=== PATIENT | female | born 1940 | race Caucasian/White ===

== ENCOUNTER 2017-08-12 08:23 | Day surgery (SDC) | payer MEDICARE ==
[~2017-08-12 08:23] MED LIST: CHONDR SU A NA/HYALUR INTRAOC KIT (SURGICARE) ONE; EPINEPHRINE INJ/PF 1 MG/1 ML AMPULE ONE; KETOROLAC TROMETHAMINE 0.45% 4 DROP/0.4 ML DROPERETTE OS PRN; LIDOCAINE 1% INJ-PF (10 MG/ML) 30 ML SDV ONE
[2017-08-12] MEDS: TETRACAINE HCL 0.5% OPH SOLN 2 ML OS PRN ×3 (09:00→09:36)
[2017-08-12] MEDS: CYCLOPENTOLATE 0.2%/PHENYLEPHRINE 1% OPH SOLN 2 ML OS PRN ×3 (09:01→09:23)
[2017-08-12] MEDS: TROPICAMIDE 1% OPH SOLN 3 ML OS PRN ×3 (09:01→09:23)
[2017-08-12] MEDS: BESIFLOXACIN HCL 0.6% OPH SUSP 5 ML BOTTLE OS PRN ×3 (09:02→09:58)
[2017-08-12] MEDS ORDERED: MIDAZOLAM 2 MG/2 ML INJ ONE (09:24)
--- NOTE | 2017-08-12 20:14 | [facility] OPERATIVE REPORT E ---
[facility] Operative Report NAME: VIKKI MCKINLEY AGE: 77Y DATE OF SURGERY: 08/12/2017 ROOM: PREOPERATIVE DIAGNOSIS: CATARACT, LEFT EYE. POSTOPERATIVE DIAGNOSIS: CATARACT, LEFT EYE. OPERATION: Cataract extraction with intraocular lens implant of the left eye. SURGEON: PHOENIX HOLLIS M.D. ANESTHESIA: Topical. PROCEDURE: After obtaining appropriate consent, the patient's left eye was prepped and draped in sterile fashion as well as the surgeon in a sterile manner and cataract surgery was started. First a paracentesis blade was used to make a small side-port incision. Viscoelastic was used to inflate the anterior chamber. Next a 2.4 mm incision was made with the paracentesis blade. A continuous capsulorrhexis incision was made using a cystotome and Utrata forceps. Following this hydrodissection was carried out to make the lens fully loose and mobile and it was rotated 90 degrees. Following this, a igmxpr-kjo-riffvvp technique was used to phacoemulsify the lens with a CDE of 6.54. The remaining cortex was removed with irrigation/aspiration. Provisc was instilled into the capsular bag to inflate the bag. A SN60WF, 20.0 diopter lens was placed. The remaining viscoelastic material was removed with irrigation/aspiration. Following this, a 10-0 nylon suture was used to close the incision and it was found to be watertight. Vigamox was instilled in the eye and a protective shield was placed over the eye. The patient returned to the postoperative recovery in stable condition. DICTATING PHYSICIAN: PHOENIX HOLLIS M.D. [id number] PHY#: [id number] ID: [id number] JOB#: [id number] ACCT: [id number] cc:PHOENIX HOLLIS M.D. >
--- NOTE | 2017-08-12 20:14 | [facility] DISCHARGE SUMMARY E ---
[facility] Discharge Summary NAME: VIKKI MCKINLEY AGE: 77Y ADMITTED: 08/12/2017 DISCHARGED: 08/12/2017 HOSPITAL COURSE: This is a 77-year-old female who underwent cataract extraction of her left eye. DIAGNOSIS: CATARACT, LEFT EYE. She underwent surgery because she was having difficulty seeing small print. DISCHARGE INSTRUCTIONS: She should be on a regular diet. No bending at her waist, no heavy lifting. She should use Besivance, Ilevro, and Durezol at 3 p.m. and 8 p.m. and sleep with a rigid shield. I will see her for her 1 day postoperative tomorrow. DICTATING PHYSICIAN: PHOENIX HOLLIS M.D. [id number] PHY#: [id number] ID: [id number] JOB#: [id number] ACCT: [id number] cc:PHOENIX HOLLIS M.D. >
== END 2017-08-12 10:45 | disposition home or self-care (01) ==
LOC: SC 08:23
PROVIDERS: ATTEND Internal Medicine
PROC: 08RK3JZ Replacement of Left Lens with Synthetic Substitute, Percutaneous Approach (ICD-10-PCS; principal; 2017-08-12 10:00)
DX: H25.13 Age-related nuclear cataract, bilateral (principal); H40.1231 Low-tension glaucoma, bilateral, mild stage; H04.123 Dry eye syndrome of bilateral lacrimal glands; H52.4 Presbyopia; I10 Essential (primary) hypertension; E78.00 Pure hypercholesterolemia, unspecified; E03.9 Hypothyroidism, unspecified; K21.9 Gastro-esophageal reflux disease without esophagitis; M19.049 Primary osteoarthritis, unspecified hand; Z87.891 Personal history of nicotine dependence; Z88.2 Allergy status to sulfonamides; Z79.899 Other long term (current) drug therapy
CPT/HCPCS: 66984; V2632; J2250; J3490 ×2; A9270; J0171; 142

== ENCOUNTER 2017-09-02 07:53 | Day surgery (SDC) | payer MEDICARE ==
[~2017-09-02 07:53] MED LIST changes: -CHONDR SU A NA/HYALUR INTRAOC KIT (SURGICARE) ONE; -EPINEPHRINE INJ/PF 1 MG/1 ML AMPULE ONE; +KETOROLAC TROMETHAMINE 0.45% 4 DROP/0.4 ML DROPERETTE OD PRN; -KETOROLAC TROMETHAMINE 0.45% 4 DROP/0.4 ML DROPERETTE OS PRN; -LIDOCAINE 1% INJ-PF (10 MG/ML) 30 ML SDV ONE
[2017-09-02] MEDS: TETRACAINE HCL 0.5% OPH SOLN 2 ML OD PRN ×3 (08:45→09:15)
[2017-09-02] MEDS: CYCLOPENTOLATE 0.2%/PHENYLEPHRINE 1% OPH SOLN 2 ML OD PRN ×3 (08:45→09:12)
[2017-09-02] MEDS: TROPICAMIDE 1% OPH SOLN 3 ML OD PRN ×3 (08:45→09:12)
[2017-09-02] MEDS: BESIFLOXACIN HCL 0.6% OPH SUSP 5 ML BOTTLE OD PRN ×4 (08:45→09:36)
[2017-09-02] MEDS ORDERED: MIDAZOLAM 2 MG/2 ML INJ ONE ×2 (08:57→09:28)
[2017-09-02] MEDS ORDERED: FENTANYL CITRATE INJ/PF 100 MCG/2 ML AMPUL ONE (08:57)
[2017-09-02] MEDS: CHONDR SU A NA/HYALUR INTRAOC KIT (SURGICARE) ONE ×2 (09:26)
[2017-09-02] MEDS: LIDOCAINE 1% INJ-PF (10 MG/ML) 30 ML SDV ONE ×2 (09:26)
[2017-09-02] MEDS: EPINEPHRINE INJ/PF 1 MG/1 ML AMPULE ONE ×2 (09:26)
[2017-09-02] MEDS ORDERED: PROMETHAZINE HCL INJ 25 MG/1 ML VIAL ONE (10:33)
--- NOTE | 2017-09-02 22:14 | DISCHARGE SUMMARY E ---
Discharge Summary NAME: VIKKI MCKINLEY : 1940 AGE: 77Y ADMITTED: 09/02/2017 DISCHARGED: 09/02/2017 HOSPITAL COURSE: This is a [id number]-old female who underwent cataract extraction of the right eye. DIAGNOSIS: Cataract, right eye. She underwent surgery because she was having difficulty seeing road signs and small print. DISCHARGE INSTRUCTIONS: She is to be on a regular diet. No bending at her waist, no heavy lifting. She is to use her Besivance, Ilevro, and Durezol at 3:00 p.m. and 8:00 p.m., and sleep with a rigid shield. I will see her for a 1 day postoperative tomorrow. DICTATING PHYSICIAN: PHOENIX HOLLIS M.D. [id number] PHY#: [id number] ID: [id number] JOB#: [id number] ACCT: [id number] cc:PHOENIX HOLLIS M.D. >
--- NOTE | 2017-09-02 22:14 | [facility] OPERATIVE REPORT E ---
[facility] Operative Report NAME: VIKKI MCKINLEY AGE: 77Y DATE OF SURGERY: 09/02/2017 ROOM: PREOPERATIVE DIAGNOSIS: CATARACT, RIGHT EYE. POSTOPERATIVE DIAGNOSIS: CATARACT, RIGHT EYE. OPERATION: Cataract extraction with intraocular lens implant of the right eye. SURGEON: PHOENIX HOLLIS M.D. ANESTHESIA: Topical. PROCEDURE: After obtaining appropriate consent, the patient's right eye was prepped and draped in sterile fashion as well as the surgeon in a sterile manner and cataract surgery was started. First a paracentesis blade was used to make a small side-port incision. Viscoelastic was used to inflate the anterior chamber. Next a 2.4 mm incision was made with the paracentesis blade. A continuous capsulorrhexis incision was made using a cystotome and Utrata forceps. Following this hydrodissection was carried out to make the lens fully loose and mobile and it was rotated 90 degrees. Following this, a wxkspg-pnb-wmsenyv technique was used to phacoemulsify the lens with a CDE of 8.36. The remaining cortex was removed with irrigation/aspiration. Provisc was instilled into the capsular bag to inflate the bag. A SN60WF, 20.0 diopter lens was placed. The remaining viscoelastic material was removed with irrigation/aspiration. Following this, a 10-0 nylon suture was used to close the incision and it was found to be watertight. Vigamox was instilled in the eye and a protective shield was placed over the eye. The patient returned to the postoperative recovery in stable condition. DICTATING PHYSICIAN: PHOENIX HOLLIS M.D. [id number] PHY#: [id number] ID: [id number] JOB#: [id number] ACCT: [id number] cc:PHOENIX HOLLIS M.D. >
== END 2017-09-02 11:49 | disposition home or self-care (01) ==
LOC: SC 07:53
PROVIDERS: ATTEND Internal Medicine
PROC: 08RJ3JZ Replacement of Right Lens with Synthetic Substitute, Percutaneous Approach (ICD-10-PCS; principal; 2017-09-02 09:30)
DX: H25.11 Age-related nuclear cataract, right eye (principal); Z96.1 Presence of intraocular lens; H40.1231 Low-tension glaucoma, bilateral, mild stage; I10 Essential (primary) hypertension; K21.9 Gastro-esophageal reflux disease without esophagitis; E07.9 Disorder of thyroid, unspecified; Z79.899 Other long term (current) drug therapy; Z88.2 Allergy status to sulfonamides
CPT/HCPCS: 66984; V2632; J2250; J3490 ×2; A9270; J0171; J3010; J2550; 142

== ENCOUNTER 2018-03-01 11:15 | Observation (INO) | payer MEDICARE ==
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
[2018-03-01 12:38] LABS: APPEARANCE,URINE SLIGHTLY-CLOUDY; BILIRUBIN,URINE NEGATIVE (NEGATIVE); COLOR,URINE YELLOW; GLUCOSE, URINE NEGATIVE (NEGATIVE); KETONES,URINE NEGATIVE (NEGATIVE); LEUKOCYTE ESTERASE,URINE SMALL (NEGATIVE); NITRITE,URINE NEGATIVE (NEGATIVE); PROTEIN,URINE 30 mg/dL (NEGATIVE)
[2018-03-01 12:38] LABS: ABSOLUTE EOSINOPHILS # (AUTO) 0.1 10^3/uL (0.0-0.6); ABSOLUTE LYMPHOCYTES (AUTO) 1.1 10^3/uL (0.5-4.7); ABSOLUTE MONOCYTES (AUTO) 0.9 10^3/uL (0.1-1.4); ABSOLUTE NEUT (AUTO) 7.4 10^3/uL (1.7-8.2); BASOPHILS % (AUTO) 0.5 % (0-2); EOSINOPHILS % (AUTO) 1.1 % (0-6); HEMATOCRIT 41.8 % (36.0-47.0); HEMOGLOBIN 14.4 g/dL (12.0-15.5); LYMPHOCYTES % (AUTO) 11.4 % (13-45); MEAN CORPUSCULAR HEMOGLOBIN 29.9 pg (27.0-33.4); MEAN CORPUSCULAR HGB CONC 34.5 g/dL (32.0-36.0); MEAN CORPUSCULAR VOLUME 87 fl (80-97); MONOCYTES % (AUTO) 9.1 % (3-13); PLATELET COUNT 179 10^3/uL (150-450); RED BLOOD COUNT 4.82 10^6/uL (3.72-5.28); RED CELL DISTRIBUTION WIDTH 14.2 % (11.5-14.0); SEGMENTED NEUTROPHILS % (AUTO) 77.9 % (42-78); TOTAL CELLS COUNTED % (AUTO) 100 %; WHITE BLOOD COUNT 9.5 10^3/uL (4.0-10.5)
--- NOTE | 2018-03-01 12:55 | RADIOLOGY REPORT (SQ) ---
EXAM DESCRIPTION: CHEST 2 VIEWS COMPLETED DATE/TIME: 03/01/2018 12:47 pm REASON FOR STUDY: sob COMPARISON: None. EXAM PARAMETERS: NUMBER OF VIEWS: two views TECHNIQUE: Digital Frontal and Lateral radiographic views of the chest acquired. RADIATION DOSE: NA LIMITATIONS: none FINDINGS: LUNGS AND PLEURA: No opacities, masses or pneumothorax. No pleural effusion. MEDIASTINUM AND HILAR STRUCTURES: No masses or contour abnormalities. HEART AND VASCULAR STRUCTURES: Heart normal size. No evidence for failure. BONES: Degenerative changes and mild increased kyphosis thoracic spine. HARDWARE: None in the chest. OTHER: No other significant finding. IMPRESSION: 1. NO ACUTE RADIOGRAPHIC FINDING IN THE CHEST. TECHNICAL DOCUMENTATION: JOB ID: [id number] [employer]- All Rights Reserved Reading location - IP/workstation name: [email or web address]
[2018-03-01 12:58] LABS: ALANINE AMINOTRANSFERASE 30 U/L (9-52); ALBUMIN 4.7 g/dL (3.5-5.0); ALKALINE PHOSPHATASE 43 U/L (38-126); ANION GAP 10 (5-19); ASPARTATE AMINO TRANSFERASE 25 U/L (14-36); BILIRUBIN,DIRECT 0.5 mg/dL (0.0-0.4); BILIRUBIN,TOTAL 1.2 mg/dL (0.2-1.3); BLOOD UREA NITROGEN 21 mg/dL (7-20); CALCIUM 9.9 mg/dL (8.4-10.2); CARBON DIOXIDE 27 mmol/L (22-30); CHLORIDE 104 mmol/L (98-107); CREATINE KINASE 377 U/L (30-135); GLUCOSE 110 mg/dL (75-110); POTASSIUM 4.2 mmol/L (3.6-5.0); SODIUM 140.5 mmol/L (137-145); TOTAL PROTEIN 7.6 g/dL (6.3-8.2)
[2018-03-01] MEDS ORDERED: ASPIRIN 81 MG TABLET, CHEWABLE PO ONE (13:08)
[2018-03-01 13:10] LABS: CREATINE KINASE MB 3.17 ng/mL (<4.55); NT PRO BNP 372 pg/mL (<450)
--- NOTE | 2018-03-01 13:13 | ER Document Report ---
ED General - General Chief Complaint: Shortness Of Breath Stated Complaint: SHORTNESS OF BREATH Time Seen by Provider: 03/01/18 11:17 TRAVEL OUTSIDE OF THE [place] IN LAST 30 DAYS: No - HPI Notes: Patient is a 77-year-old female that presents to the emergency department for chief complaint of chest pain and palpitations. Patient started having a heaviness in her chest this morning at 8 AM. It is substernal and nonradiating. There are no aggravating or relieving factors. The heaviness is currently starting to improve but has not completely resolved. She reports associated heart "fluttering" and shortness of breath that began at the same time. She does endorse a cough that has been nonproductive. She denies any fevers or chills. Patient denies history of cardiac issues in the past including VT and dysrhythmia. She has never had a stress test. She did not take aspirin today. She denies being on anticoagulation. Past Medical History: Retention, hyperlipidemia, hypothyroidism Past Surgical History: Denies Social History: Denies drugs alcohol and tobacco Family History: Reviewed and noncontributory for presenting illness Allergies: Reviewed, see documented allergy list. REVIEW OF SYSTEMS: CONSTITUTIONAL : No fever No chills No diaphoresis No recent illness EENT: No vision changes No congestion No sore throat CARDIOVASCULAR: chest pain No palpitations RESPIRATORY: shortness of breath No cough No difficulty breathing GASTROINTESTINAL: No abdominal pain No nausea No vomiting No diarrhea GENITOURINARY: No dysuria No hematuria No difficulty urinating MUSCULOSKELETAL: No back pain No leg pain No arm pain SKIN: No rashes No lesions LYMPHATIC: No swollen, enlarged glands. NEUROLOGICAL: No lightheadedness No headache No weakness No paresthesias PSYCHIATRIC: No anxiety No depression PHYSICAL EXAMINATION: Vital signs reviewed, nursing noted reviewed. GENERAL: Well-appearing, well-nourished and in no acute distress. HEAD: Atraumatic, normocephalic. EYES: Eyes appear normal, extraocular movements intact, sclera anicteric, conjunctiva are normal. ENT: nares patent, oropharynx clear without exudates. Moist mucous membranes. NECK: Normal range of motion, supple without lymphadenopathy LUNGS: Breath sounds clear to auscultation bilaterally and equal. No wheezes rales or rhonchi. HEART: Irregular rhythm, regular rate, no murmur ABDOMEN: Soft, nontender, normoactive bowel sounds. No rebound, guarding, or rigidity. No masses appreciated. EXTREMITIES: Nontender, good range of motion, no pitting or edema. NEUROLOGICAL: No focal neurological deficits. Moves all extremities spontaneously Motor and sensory grossly intact on exam. PSYCH: Normal mood, normal affect. SKIN: Warm, Dry, normal turgor, no rashes or lesions noted on exposed skin - Related Data Allergies/Adverse Reactions: Sulfa (Sulfonamide Antibiotics) Allergy (Verified 03/01/18 11:15) Past Medical History - Social History Smoking Status: Never Smoker Family History: Reviewed & Not Pertinent Patient has suicidal ideation: No Patient has homicidal ideation: No - Past Medical History Cardiac Medical History: Reports: Hx Coronary Artery Disease, Hx Hypertension - ON MEDS Denies: Hx Heart Attack Pulmonary Medical History: Denies: Hx Asthma, Hx Bronchitis, Hx COPD, Hx Pneumonia Neurological Medical History: Denies: Hx Cerebrovascular Accident, Hx Seizures Renal/ Medical History: Denies: Hx Peritoneal Dialysis GI Medical History: Denies: Hx Hepatitis, Hx Hiatal Hernia, Hx Ulcer Musculoskeletal Medical History: 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, 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 Infectious Medical History: Denies: Hx Hepatitis Past Surgical History: Reports: Hx Hysterectomy. Denies: Hx Mastectomy, Hx Open Heart Surgery, Hx Pacemaker - Immunizations Hx Diphtheria, Pertussis, Tetanus Vaccination: Yes Hx Pneumococcal Vaccination: 04/07/13 Review of Systems - Review of Systems Notes: Dictated Physical Exam - Vital signs Vitals: Temp Pulse BP Pulse Ox 97.6 F 94 148/78 H 96 03/01/18 11:18 03/01/18 11:18 03/01/18 11:18 03/01/18 11:18 - Notes Notes: Dictated Course - Re-evaluation Re-evalutation: 03/01/18 13:11 Vitals reviewed and stable. Patient in no acute distress. EKG shows no onset atrial flutter. She is rate controlled. Patient given aspirin for chest pain. Chest x-ray shows no pneumothorax, pneumonia, or other acute findings. She has no electrolyte derangements or renal insufficiency. UA shows small leuks and 10 WBCs but it is a contaminated sample. She has no symptoms of urinary tract infection. Urine culture will be sent for confirmation and antibiotics held until culture returns. Patient's troponin is negative. She will be admitted to the hospital for further telemetry monitoring and cardiac evaluation. Case discussed with admitting physician Dr. Christine who has requested CT angiogram to rule out pulmonary embolism. I ordered the CT angio of the chest and he will follow the results. Patient is stable at time of admission and in agreement with the plan. Laboratory 03/01/18 03/01/18 03/01/18 11:25 12:19 12:19 WBC 9.5 RBC 4.82 Hgb 14.4 Hct 41.8 MCV 87 MCH 29.9 MCHC 34.5 RDW 14.2 H Plt Count 179 Seg Neutrophils % 77.9 Lymphocytes % 11.4 L Monocytes % 9.1 Eosinophils % 1.1 Basophils % 0.5 Absolute Neutrophils 7.4 Absolute Lymphocytes 1.1 Absolute Monocytes 0.9 Absolute Eosinophils 0.1 Absolute Basophils 0.0 Sodium 140.5 Potassium 4.2 Chloride 104 Carbon Dioxide 27 Anion Gap 10 BUN 21 H Creatinine 0.66 Est GFR ( Amer) > 60 Est GFR (Non-Af Amer) > 60 Glucose 110 Calcium 9.9 Total Bilirubin 1.2 Direct Bilirubin 0.5 H Neonat Total Bilirubin Not Reportable Neonat Direct Bilirubin Not Reportable Neonat Indirect Bili Not Reportable AST 25 ALT 30 Alkaline Phosphatase 43 Creatine Kinase 377 H Total Protein 7.6 Albumin 4.7 Urine Color YELLOW Urine Appearance SLIGHTLY-CLOUDY Urine pH 5.0 Ur Specific [place] 1.020 Urine Protein 30 H Urine Glucose (UA) NEGATIVE Urine Ketones NEGATIVE Urine Blood MODERATE H Urine Nitrite NEGATIVE Urine Bilirubin NEGATIVE Urine Urobilinogen 2.0 H Ur Leukocyte Esterase SMALL H Urine WBC (Auto) 10 Urine RBC (Auto) 4 U Hyaline Cast (Auto) 1 Urine Bacteria (Auto) TRACE Squamous Epi Cells Auto 4 U Non-Squamous Epis Auto 2 Urine Mucus (Auto) OCC Urine Ascorbic Acid NEGATIVE Chest X-Ray 03/01/18 11:52 IMPRESSION: 1. NO ACUTE RADIOGRAPHIC FINDING IN THE CHEST. 03/01/18 13:56 - Vital Signs Vital signs: Temp Pulse Resp BP Pulse Ox 97.6 F 94 15 159/62 H 98 03/01/18 11:18 03/01/18 11:18 03/01/18 12:37 03/01/18 12:37 03/01/18 12:37 - Laboratory Result Diagrams: 03/01/18 12:19 09/25/18 12:19 Laboratory results interpreted by me: 03/01/18 03/01/18 03/01/18 11:25 12:19 12:19 RDW 14.2 H Lymphocytes % 11.4 L BUN 21 H Direct Bilirubin 0.5 H Creatine Kinase 377 H Urine Protein 30 H Urine Blood MODERATE H Urine Urobilinogen 2.0 H Ur Leukocyte Esterase SMALL H Discharge - Discharge Clinical Impression: Shortness of breath Atrial flutter Qualifiers: Atrial flutter type: unspecified Qualified Code(s): I48.92 - Unspecified atrial flutter Chest pain Qualifiers: Chest pain type: unspecified Qualified Code(s): R07.9 - Chest pain, unspecified Condition: Stable Disposition: ADMITTED OBSERVATION Admitting Provider: Hospitalist Unit Admitted: Telemetry Referrals: ASHA MONTIEL MD [Primary Care Provider] - Follow up as needed
[2018-03-01 13:14] LABS: TROPONIN I < 0.012 ng/mL
--- NOTE | 2018-03-01 14:52 | RADIOLOGY REPORT (SQ) ---
EXAM DESCRIPTION: CTA CHEST COMPLETED DATE/TIME: 03/01/2018 2:38 pm REASON FOR STUDY: palpitations, PE COMPARISON: None. TECHNIQUE: CT scan of the chest performed using helical scanning technique with dynamic intravenous contrast injection. Images reviewed with lung, soft tissue and bone windows. Reconstructed coronal and sagittal MPR images reviewed. Additional 3 dimensional post-processing performed to develop Maximal Intensity Projection images (UT P). All images stored on PACS. All CT scanners at this facility use dose modulation, iterative reconstruction, and/or weight based d osing when appropriate to reduce radiation dose to as low as reasonably achievable (ALARA). [facility]: Dose Right [facility]: CareDose [facility]: Dose Right [facility]: Teradose 4D [facility]: Joust CONTRAST TYPE AND DOSE: contrast/concentration: Isovue 350.00 mg/ml; Total Contrast Delivered: 74.0 ml; Total Saline Delivered: 86.9 ml Contrast bolus optimized for the pulmonary arteries. Not diagnostic for the aorta. RENAL FUNCTION: Creatinine: 0.7 RADIATION DOSE: CT Rad equipment meets quality standard of care and radiation dose reduction techniq ues were employed. CTDIvol: 16.5 - 21.5 mGy. DLP: 795 mGy-cm. . LIMITATIONS: None. FINDINGS: LUNGS AND PLEURA: Chronic scarring in lung bases. AORTA AND GREAT VESSELS: No aneurysm. Contrast bolus not optimized for the aorta. HEART: No pericardial effusion. Atherosclerotic coronary calcification. . PULMONARY ARTERIES: No emboli visualized in the main pulmonary arteries or the segmental branches. HILAR AND MEDIASTINAL STRUCTURES: No adenopathy. HARDWARE: None in the chest. UPPER ABDOMEN: The liver, spleen, adrenals demonstrate no abnormality. No abnormality of the upper p ole the kidneys. Hiatal hernia. THYROID AND OTHER SOFT TISSUES: No abnormality. BONES: Dorsal spondylosis. IMPRESSION: CHRONIC SCARRING IN LUNG BASES. OTHERWISE, NO SIGNIFICANT ABNORMALITY SEEN. COMMENT: Quality ID # [id number]: Final reports with documentation of one or more dose reduction techniques (e.g., Automated exposure control, adjustment of the mA and/or kV according to patient size, use of iterative reconstruction technique) TECHNICAL DOCUMENTATION: JOB ID: [id number] SC-[id number] 2010 [employer]- All Rights Reserved Reading location - IP/workstation name: [email or web address]
--- NOTE | 2018-03-01 16:56 | EKG REPORT ---
SEVERITY:- ABNORMAL ECG - ATRIAL FLUTTER/FIBRILLATION, A-RATE 227 INFERIOR INFARCT, OLD CONSIDER POSTERIOR WALL INVOLVEMENT ST DEPRESSION, CONSIDER ISCHEMIA, ANT-LAT LDS : Confirmed by: Ashanti Zambrano MD 01-Mar-2018 16:56:03
[2018-03-01] MEDS ORDERED: DILTIAZEM HCL/D5W 125 MG/125 ML RTUINJ IV PRN (17:26)
[2018-03-01] MEDS: ENOXAPARIN SODIUM INJ 80 MG/0.8 ML DISP.SYRIN SUBCUT SCH (17:55)
[2018-03-01 18:05] LABS: INTERNATIONAL RATION (INR) 1.02; PROTHROMBIN TIME 13.9 SEC (11.4-15.4)
[2018-03-01] MEDS ORDERED: ACETAMINOPHEN 325 MG TABLET PO PRN (20:33)
--- NOTE | 2018-03-01 20:33 | PDOC H&P ---
History of Present Illness Admission Date/PCP: 03/01/18 14:15 ASHA MONTIEL MD Patient complains of: Shortness of breath History of Present Illness: VIKKI MCKINLEY is a 77 year old female with a past medical history of hypertension, hypothyroidism and hyperlipidemia who came in with shortness of breath and chest discomfort. Patient says that she was apparently fine until late this afternoon afternoon when she developed sudden SOB and midsternal discomfort. She said it does not pain and it feels like a heavy sensation on the midsternal area. She did complain of associated shortness of breath. She denies of palpitations or dizziness. No nausea or diaphoresis. In the ER, patient was noted to be in atrial flutter in the 90s. Her blood pressures have been normal. Past Medical History Cardiac Medical History: Reports: Coronary Artery Disease, Hypertension - ON MEDS Denies: Myocardial Infarction Pulmonary Medical History: Denies: Asthma, Bronchitis, Chronic Obstructive Pulmonary Disease (COPD), Pneumonia Neurological Medical History: Denies: Seizures GI Medical History: Denies: Hepatitis, Hiatal Hernia Musculoskeltal Medical History: Reports: Arthritis - B/L KNEES, 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 Hematology: Reports: Anemia - A CHILD Denies: Sickle Cell Disease Past Surgical History Past Surgical History: Reports: Hysterectomy Denies: Amputation, Mastectomy, Pacemaker Social History Smoking Status: Never Smoker Family History Family History: Reviewed & Not Pertinent Parental Family History Reviewed: No - no premature CAD Children Family History Reviewed: No Sibling(s) Family History Reviewed.: No Medication/Allergy Home Medications: Estradiol [Divigel] 0.5 mg TOP DAILY 04/16/14 [place]-3 Acid Ethyl Esters 2 gm PO BID 04/16/14 Calcium Polycarbophil [Fibercon 625 mg Tablet] 1,250 mg PO DAILY 04/17/14 Levothyroxine Sodium 88 mcg PO Q6AM 07/08/17 Omeprazole 20 mg PO DAILY 07/08/17 Latanoprost [Xalatan] 1 drop OU QHS 08/12/17 Rosuvastatin Calcium [Crestor 20 mg Tablet] 40 mg PO QHS 03/01/18 Apixaban [Eliquis 2.5 mg Tablet] 2.5 mg PO Q12 #60 tablet 03/02/18 Aspirin [Aspirin 81 mg Chewable Tablet] 81 mg PO DAILY #30 tab.chew 03/02/18 Lisinopril [Prinivil 10 mg Tablet] 10 mg PO DAILY #30 tablet 03/02/18 Metoprolol Tartrate [Lopressor 50 mg Tablet] 50 mg PO Q12 #60 tablet 03/02/18 Allergies/Adverse Reactions: Sulfa (Sulfonamide Antibiotics) Allergy (Verified 03/01/18 11:15) Physical Exam Vital Signs: Temp Pulse Resp BP Pulse Ox 97.6 F 94 29 H 145/66 H 92 03/01/18 11:18 03/01/18 11:18 03/01/18 15:05 03/01/18 15:05 03/01/18 15:05 Results Impressions: Chest X-Ray 03/01/18 11:52 IMPRESSION: 1. NO ACUTE RADIOGRAPHIC FINDING IN THE CHEST. Chest/Abdomen CTA 03/01/18 13:55 IMPRESSION: CHRONIC SCARRING IN LUNG BASES. OTHERWISE, NO SIGNIFICANT ABNORMALITY SEEN. Assessment & Plan - Diagnosis (1) Atrial flutter Qualifiers: Atrial flutter type: unspecified Qualified Code(s): I48.92 - Unspecified atrial flutter Is this a current diagnosis for this admission?: Yes Plan: This is new onset atrial flutter. CHADVASC score is 4. Discussed in length about plans of care including anticoagulation including its risks and benefits. Patient is amenable to anticoagulation. Also discussed with cardiology. Patient will be started on therapeutic Lovenox. She will also be started on IV Cardizem at 5 mg/h. (2) Chest pain Qualifiers: Chest pain type: unspecified Qualified Code(s): R07.9 - Chest pain, unspecified Is this a current diagnosis for this admission?: Yes Plan: EKG shows atrial flutter. Initial troponin is negative. We will continue to cycle troponins and EKGs. - Time Time Spent: 50 to 70 Minutes
[2018-03-01] MEDS ORDERED: ATORVASTATIN CALCIUM 80 MG TABLET PO SCH (22:00)
[2018-03-01] MEDS ORDERED: ROSUVASTATIN CALCIUM 40 MG PO SCH (22:00)
[2018-03-01] MEDS ORDERED: HEPARIN SOD (PORCINE) 5,000 UNIT/ML 1 ML SYRINGE SUBCUT SCH (22:00)
[2018-03-02] MEDS ORDERED: LEVOTHYROXINE SODIUM 0.088 MG TABLET PO SCH ×2 (06:00)
[2018-03-02] MEDS: ENOXAPARIN SODIUM INJ 80 MG/0.8 ML DISP.SYRIN SUBCUT SCH (06:41)
--- NOTE | 2018-03-02 07:54 | EKG REPORT ---
SEVERITY:- ABNORMAL ECG - ATRIAL FLUTTER, A-RATE 230 NONSPECIFIC T ABNORMALITIES, LATERAL LEADS BORDERLINE PROLONGED QT INTERVAL : Confirmed by: Ashatni Zambrano MD 02-Mar-2018 07:54:18
--- NOTE | 2018-03-02 07:55 | EKG REPORT ---
SEVERITY:- ABNORMAL ECG - A-FLUTTER W/ PREDOM 3:1 AV BLOCK, A-RATE 230 NONSPECIFIC INTRAVENTRICULAR CONDUCTION DELAY : Confirmed by: Ashanti Zambrano MD 02-Mar-2018 07:54:28
[2018-03-02] MEDS ORDERED: HYDROCHLOROTHIAZIDE 12.5 MG TABLET PO SCH (10:00)
[2018-03-02] MEDS ORDERED: (PENDING PHARMACY ID) (Lisinopril/Hydrochlorothiazide [Lisinopril-Hctz 20-12.5 Mg Tab] 1 T PO SCH (10:00)
[2018-03-02] MEDS ORDERED: METOPROLOL TARTRATE 50 MG TABLET PO SCH (10:00)
[2018-03-02] MEDS ORDERED: APIXABAN 5 MG TABLET PO SCH (10:00)
[2018-03-02] MEDS ORDERED: ASPIRIN 81 MG TABLET, CHEWABLE PO SCH (10:00)
[2018-03-02] MEDS ORDERED: LISINOPRIL 10 MG TABLET PO SCH (10:00)
--- NOTE | 2018-03-02 15:16 | PDOC DISCHARGE SUMMARY ---
General - Admit/Disc Date/PCP Admission Date/Primary Care Provider: 03/01/18 14:15 ASHA MONTIEL MD Discharge Date: 03/02/18 - Discharge Diagnosis (1) Atrial flutter Is this a current diagnosis for this admission?: Yes (2) Chest pain Is this a current diagnosis for this admission?: Yes - Additional Information Resuscitation Status: Full Code Prescriptions: Apixaban [Eliquis 2.5 mg Tablet] 2.5 mg PO Q12 #60 tablet Aspirin [Aspirin 81 mg Chewable Tablet] 81 mg PO DAILY #30 tab.chew Lisinopril [Prinivil 10 mg Tablet] 10 mg PO DAILY #30 tablet Metoprolol Tartrate [Lopressor 50 mg Tablet] 50 mg PO Q12 #60 tablet Home Medications: Estradiol [Divigel] 0.5 mg TOP DAILY 04/16/14 [place]-3 Acid Ethyl Esters 2 gm PO BID 04/16/14 Calcium Polycarbophil [Fibercon 625 mg Tablet] 1,250 mg PO DAILY 04/17/14 Levothyroxine Sodium 88 mcg PO Q6AM 07/08/17 Omeprazole 20 mg PO DAILY 07/08/17 Latanoprost [Xalatan] 1 drop OU QHS 08/12/17 Rosuvastatin Calcium [Crestor 20 mg Tablet] 40 mg PO QHS 03/01/18 Apixaban [Eliquis 2.5 mg Tablet] 2.5 mg PO Q12 #60 tablet 03/02/18 Aspirin [Aspirin 81 mg Chewable Tablet] 81 mg PO DAILY #30 tab.chew 03/02/18 Lisinopril [Prinivil 10 mg Tablet] 10 mg PO DAILY #30 tablet 03/02/18 Metoprolol Tartrate [Lopressor 50 mg Tablet] 50 mg PO Q12 #60 tablet 03/02/18 History of Present Illness History of Present Illness: VIKKI MCKINLEY is a 77 year old female with a past medical history of hypertension, hypothyroidism and hyperlipidemia who came in with shortness of breath and chest discomfort. Patient says that she was apparently fine until late this yesterday afternoon when she developed sudden SOB and midsternal discomfort. She said it does not pain and it feels like a heavy sensation on the midsternal area. She did complain of associated shortness of breath. She denies of palpitations or dizziness. No nausea or diaphoresis. In the ER, patient was noted to be in atrial flutter in the 90s. Her blood pressures have been normal. Hospital Course Hospital Course: Patient was admitted for new onset atrial flutter with HR in the 90s. Cardiology was consulted upon admission. Patient was started on cardizem drip at 5 mg/hr and was also started on therapeutic Lovenox after discussing risks and benefits of anticoagulation. Patient has a CHADVASC score of 4. She was amenable to chronic anticoagulation. Patient was continued on cardizem overnight. On the next day, she transiently went to sinus rhythm but immediately back to atrial flutter. Her heart was optimally controlled in the 70 -80s. She was switched to oral lopressor and also switched to Eliquis as recommended by cardiology. She was also given a referral by slat pickler for a slat pickler at [facility] for evaluation for possible ablation. Physical Exam Vital Signs: Temp Pulse Resp BP Pulse Ox 97.9 F 66 17 129/59 H 96 03/02/18 12:51 03/02/18 12:51 03/02/18 12:51 03/02/18 12:51 03/02/18 12:51 Intake & Output 03/01/18 03/02/18 03/03/18 06:59 06:59 06:59 Intake Total 3210 Balance 3210 Weight 170 lb 6.677 oz General appearance: PRESENT: no acute distress, well-developed, well-nourished Head exam: PRESENT: atraumatic, normocephalic Eye exam: PRESENT: conjunctiva pink, EOMI, PERRLA. ABSENT: scleral icterus Ear exam: PRESENT: normal external ear exam Mouth exam: PRESENT: moist, tongue midline Neck exam: ABSENT: carotid bruit, JVD, lymphadenopathy, thyromegaly Respiratory exam: PRESENT: clear to auscultation lin. ABSENT: rales, rhonchi, wheezes Cardiovascular exam: PRESENT: RRR. ABSENT: diastolic murmur, rubs, systolic murmur Pulses: PRESENT: normal dorsalis pedis pul GI/Abdominal exam: PRESENT: normal bowel sounds, soft. ABSENT: distended, guarding, mass, organolmegaly, rebound, tenderness Rectal exam: PRESENT: deferred Extremities exam: PRESENT: full ROM. ABSENT: calf tenderness, clubbing, pedal edema Neurological exam: PRESENT: alert, awake, oriented to person, oriented to place , oriented to time, oriented to situation, CN II-XII grossly intact. ABSENT: motor sensory deficit Psychiatric exam: PRESENT: appropriate affect, normal mood. ABSENT: homicidal ideation, suicidal ideation Results Laboratory Results: 03/01/18 03/02/18 18:03 00:41 Troponin I < 0.012 < 0.012 Impressions: Chest X-Ray 03/01/18 11:52 IMPRESSION: 1. NO ACUTE RADIOGRAPHIC FINDING IN THE CHEST. Chest/Abdomen CTA 03/01/18 13:55 IMPRESSION: CHRONIC SCARRING IN LUNG BASES. OTHERWISE, NO SIGNIFICANT ABNORMALITY SEEN. Qualifiers - * PATIENT BEING DISCHARGED WITH ANY OF THE FOLLOWING DIAGNOSIS: No
[2018-03-02 15:35] VITALS: BP 152/69
--- NOTE | 2018-03-02 19:34 | EKG REPORT ---
SEVERITY:- ABNORMAL ECG - ATRIAL FLUTTER, A-RATE 230 PROBABLE LEFT VENTRICULAR HYPERTROPHY : Confirmed by: Ashanti Zambrano MD 02-Mar-2018 19:34:05
--- NOTE | 2018-03-02 19:34 | EKG REPORT ---
SEVERITY:- ABNORMAL ECG - A-FLUTTER W/ PREDOM 3:1 AV BLOCK, A-RATE 230 : Confirmed by: Ashanti Zambrano MD 02-Mar-2018 19:33:53
[2018-03-02] MEDS ORDERED: APIXABAN 2.5 MG TABLET PO SCH (22:00)
[2018-03-03] MEDS ORDERED: LISINOPRIL 10 MG TABLET PO SCH (10:00)
== END 2018-03-02 16:24 | disposition home or self-care (01) ==
LOC: ER 11:15 → EH 14:15 → 4S 20:30 → 3W 03-02 10:22
PROVIDERS: ADMIT Internal Medicine; ATTEND Internal Medicine
DX: I48.92 Unspecified atrial flutter (principal); R07.89 Other chest pain; E03.9 Hypothyroidism, unspecified; I10 Essential (primary) hypertension; E78.5 Hyperlipidemia, unspecified; R06.02 Shortness of breath; I25.10 Atherosclerotic heart disease of native coronary artery without angina pectoris; R05 Cough; Z79.82 Long term (current) use of aspirin; Z79.899 Other long term (current) drug therapy; Z79.02 Long term (current) use of antithrombotics/antiplatelets
CPT/HCPCS: 93005 ×3; 99285; 96372; 36415 ×2; 87086; 82553; 82550; 84443; 85025; 85610; 80053; 81001; 84484 ×2; 83880; 71046; 71275; 93010 ×2; G0378 ×3; A9270 ×7; J1650 ×2; J3490

== ENCOUNTER 2018-05-23 09:46 | Inpatient (IN) | payer MEDICARE ==
[2018-05-23] MEDS ORDERED: METOCLOPRAMIDE HCL INJ/PF 10 MG/2 ML SDV IV ONE (10:10)
[2018-05-23] MEDS ORDERED: NORMAL SALINE 1000 ML 1,000 ML IV ONE (10:10)
--- NOTE | 2018-05-23 10:17 | ER Document Report ---
ED General - General Stated Complaint: HEADACHE Time Seen by Provider: 05/23/18 09:54 Mode of Arrival: Medic Information source: Patient, Relative Notes: 78-year-old female presents emergency department with complaints of headache, slurred speech, hand numbness and tingling. Patient states that yesterday her symptoms started. She states that she began having a headache located in the left caodaism that radiated across the forehead to the right caodaism. Patient states that she does have a history of migraine headaches and that this is similar although she hasn't had a headache in a long time. Gradual onset. She states that the headache is worse with light. She is taken Tylenol and states that it does help with the pain. Denies trauma or injury. Patient states that yesterday she noticed some numbness and tingling in her right hand. This resolved and today she has been having numbness and tingling in her left hand. Patient states that her son contacted her this morning at 8 AM and she noticed that she was slurring her speech. Patient's son says that when he called at 8 AM he noticed that her tone was different but denies any slurred speech. He states that when he called back at 815 he noticed the slurred speech. He states that the patient's slurred speech has completely resolved. Patient denies any current numbness or tingling or weakness, vision changes. Patient has a history of atrial fibrillation and is on eliquis. Denies history of CVA. TRAVEL OUTSIDE OF THE [place] IN LAST 30 DAYS: No - HPI Onset: Yesterday Quality of pain: Throbbing Severity: Moderate Associated symptoms: Productive cough, Earache, Nausea, Rhinnorhea, Sore throat Exacerbated by: Other - light Relieved by: Other - tylenol Similar symptoms previously: Yes Recently seen / treated by doctor: No - Related Data Allergies/Adverse Reactions: Sulfa (Sulfonamide Antibiotics) Allergy (Verified 03/01/18 11:15) Past Medical History - General Information source: Patient, Relative - Social History Smoking Status: Never Smoker Family History: Reviewed & Not Pertinent - Past Medical History Cardiac Medical History: Reports: Hx Coronary Artery Disease, Hx Hypertension - ON MEDS Denies: Hx Congestive Heart Failure, Hx Heart Attack Pulmonary Medical History: Denies: Hx Asthma, Hx Bronchitis, Hx COPD, Hx Pneumonia, Hx Tuberculosis Neurological Medical History: Denies: Hx Cerebrovascular Accident, Hx Seizures Renal/ Medical History: Denies: Hx End Stage Renal Disease, Hx Kidney Stones, Hx Peritoneal Dialysis GI Medical History: Denies: Hx Cirrhosis, Hx Gastroesophageal Reflux Disease, Hx Hepatitis, Hx Hiatal Hernia, Hx Ulcer Musculoskeletal Medical History: 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, 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, Denies Hx Multiple Sclerosis Psychiatric Medical History: Denies: Hx Bipolar Disorder, Hx Depression, Hx Schizophrenia Infectious Medical History: Denies: Hx Hepatitis Past Surgical History: Reports: Hx Hysterectomy. Denies: Hx Mastectomy, Hx Open Heart Surgery, Hx Pacemaker - Immunizations Hx Diphtheria, Pertussis, Tetanus Vaccination: Yes Hx Pneumococcal Vaccination: 04/07/13 Review of Systems - Review of Systems Constitutional: No symptoms reported EENT: Ear pain, Nose discharge, Throat pain Cardiovascular: No symptoms reported Respiratory: Cough Gastrointestinal: No symptoms reported Genitourinary: No symptoms reported Female Genitourinary: No symptoms reported Musculoskeletal: No symptoms reported Skin: No symptoms reported Hematologic/Lymphatic: No symptoms reported Neurological/Psychological: Speech impairment, Numbness, Tingling -: Yes All other systems reviewed and negative Physical Exam - Vital signs Vitals: Resp 16 05/23/18 09:46 - Notes Notes: PHYSICAL EXAMINATION: GENERAL: Well-appearing, well-nourished and in no acute distress. HEAD: Atraumatic, normocephalic. EYES: Pupils equal round and reactive to light, extraocular movements intact, conjunctiva are normal. ENT: Nares patent, oropharynx clear without exudates. Moist mucous membranes. NECK: Normal range of motion, supple without lymphadenopathy LUNGS: Breath sounds clear to auscultation bilaterally and equal. No wheezes rales or rhonchi. HEART: Regular rate and rhythm without murmurs ABDOMEN: Soft, nontender, nondistended abdomen. No guarding, no rebound. No masses appreciated. Female : deferred Musculoskeletal: Normal range of motion, no pitting or edema. No cyanosis. NEUROLOGICAL: Cranial nerves grossly intact. Normal speech, Normal sensory, motor exams. Finger to nose normal. PSYCH: Normal mood, normal affect. SKIN: Warm, Dry, normal turgor, no rashes or lesions noted. Course - Re-evaluation Re-evalutation: 05/23/18 10:20 Patient stroke score of 0. Says her slurred speech and hand numbness have resolved. Patient is not a TPA candidate as she has a stroke score of 0, is 78 years of age, and is on eliquis. 05/23/18 11:25 EKG: Ventricular rate 67, VA interval 204, QRS duration 94, QTc 486, normal sinus rhythm. No ST segment elevation. 05/23/18 12:49 CT brain shows infarct in R MCA area. No midline shift or bleed. Patient's family say that when she got up to go to the bathroom while in the ER and she had R foot numbness/tingling. I re-evaluted the patient. Continues to have a stroke score of 0. R foot numbness has resolved. BP has been increasing since being in the ED. Initially 176/95. Morphine ordered for headache. Spoke with Dr. Adam about hypertensive medication. Recommends holding anti-hypertensives at this time. He will come to the ED to evaluate the patient. Patient currently stable. 05/23/18 12:52 - Vital Signs Vital signs: Temp Pulse Resp BP Pulse Ox 25 H 166/151 H 98 05/23/18 12:00 05/23/18 11:01 05/23/18 12:00 - Laboratory Result Diagrams: 05/23/18 10:04 05/23/18 11:22 Laboratory results interpreted by me: 05/23/18 05/23/18 05/23/18 10:04 10:20 11:22 RDW 14.8 H Seg Neutrophils % 79.0 H Lymphocytes % 12.0 L Potassium 3.2 L Creatinine 0.44 L Glucose 115 H Total Bilirubin 1.6 H Urine Protein >=500 H Urine Ketones TRACE H Urine Blood SMALL H Discharge - Discharge Clinical Impression: CVA (cerebral vascular accident) Condition: Stable Disposition: ADMITTED OBSERVATION Admitting Provider: Hospitalist Unit Admitted: IMCU Referrals: ASHA MONTIEL MD [Primary Care Provider] - Follow up as needed
[2018-05-23] MEDS ORDERED: HYDRALAZINE HCL INJ/PF 20 MG/1 ML SDV IV ONE (10:24)
[2018-05-23 10:42] LABS: ABSOLUTE MONOCYTES (AUTO) 0.7 10^3/uL (0.1-1.4); ABSOLUTE NEUT (AUTO) 6.6 10^3/uL (1.7-8.2); BASOPHILS % (AUTO) 0.2 % (0-2); EOSINOPHILS % (AUTO) 0.5 % (0-6); HEMATOCRIT 42.9 % (36.0-47.0); HEMOGLOBIN 14.7 g/dL (12.0-15.5); MEAN CORPUSCULAR HEMOGLOBIN 28.7 pg (27.0-33.4); MEAN CORPUSCULAR HGB CONC 34.4 g/dL (32.0-36.0); MEAN CORPUSCULAR VOLUME 84 fl (80-97); MONOCYTES % (AUTO) 8.3 % (3-13); PLATELET COUNT 159 10^3/uL (150-450); RED BLOOD COUNT 5.13 10^6/uL (3.72-5.28); RED CELL DISTRIBUTION WIDTH 14.8 % (11.5-14.0); TOTAL CELLS COUNTED % (AUTO) 100 %; WHITE BLOOD COUNT 8.4 10^3/uL (4.0-10.5)
[2018-05-23 10:44] LABS: INTERNATIONAL RATION (INR) 1.09; PARTIAL THROMBOPLASTIN TIME 33.9 SEC (23.5-35.8); PROTHROMBIN TIME 14.7 SEC (11.4-15.4)
[2018-05-23 10:50] LABS: APPEARANCE,URINE CLEAR; BILIRUBIN,URINE NEGATIVE (NEGATIVE); COLOR,URINE STRAW; GLUCOSE, URINE NEGATIVE (NEGATIVE); KETONES,URINE TRACE mg/dL (NEGATIVE); LEUKOCYTE ESTERASE,URINE NEGATIVE (NEGATIVE); NITRITE,URINE NEGATIVE (NEGATIVE); PROTEIN,URINE >=500 mg/dL (NEGATIVE); URINE SPECIFIC GRAVITY 1.009; UROBILINOGEN,URINE NEGATIVE mg/dL (<2.0)
--- NOTE | 2018-05-23 10:59 | RADIOLOGY REPORT (SQ) ---
EXAM DESCRIPTION: CT HEAD WITHOUT COMPLETED DATE/TIME: 05/23/2018 10:34 am REASON FOR STUDY: headache, slurred speech COMPARISON: None. TECHNIQUE: Axial images acquired through the brain without intravenous contrast. Images reviewed wi th bone, brain and subdural windows. Additional sagittal and coronal reconstructions were generated. Images stored on PACS. All CT scanners at this facility use dose modulation, iterative reconstruction, and/or weight based d osing when appropriate to reduce radiation dose to as low as reasonably achievable (ALARA). [facility]: Dose Right [facility]: CareDose [facility]: Dose Right [facility]: Teradose 4D [facility]: Third Chicken RADIATION DOSE: CT Rad equipment meets quality standard of care and radiation dose reduction techniq ues were employed. CTDIvol: 53.2 mGy. DLP: 1044 mGy-cm. mGy. LIMITATIONS: Motion artifact throughout the study. Artifact from caregiver's hand over the frontal region FINDINGS: Motion artifact throughout the study. Artifact versus low attenuation in the right MCA distribution, with sulcal effacement and decreased a ttenuation. No CT evidence of acute intracranial hemorrhage, or midline shift Bone windows are unremarkable IMPRESSION: Question right MCA distribution infarct with low-attenuation present. No acute hemorrha ge. EVIDENCE OF ACUTE STROKE: YES. COMMENT: Pertinent findings on the imaging study reported as a CRITICAL RESULT to Alfreda ALTMAN at10:43 on 05/23/2018. Category of Critical Result: Acute right MCA distribution infarct Quality ID # [id number]: Final reports with documentation of one or more dose reduction techniques (e.g., Au tomated exposure control, adjustment of the mA and/or kV according to patient size, use of iterative reconstruction technique) TECHNICAL DOCUMENTATION: JOB ID: [id number] [employer]- All Rights Reserved Reading location - IP/workstation name: [email or web address]
--- NOTE | 2018-05-23 11:07 | RADIOLOGY REPORT (SQ) ---
EXAM DESCRIPTION: CHEST SINGLE VIEW COMPLETED DATE/TIME: 05/23/2018 10:36 am REASON FOR STUDY: headache, slurred speech COMPARISON: February 2018 EXAM PARAMETERS: NUMBER OF VIEWS: One view. TECHNIQUE: Single frontal radiographic view of the chest acquired. RADIATION DOSE: NA LIMITATIONS: None. FINDINGS: LUNGS AND PLEURA: No opacities, masses or pneumothorax. No pleural effusion. MEDIASTINUM AND HILAR STRUCTURES: No masses. Contour normal. HEART AND VASCULAR STRUCTURES: Heart normal in size. Normal vasculature. BONES: No acute findings. HARDWARE: None in the chest. OTHER: No other significant finding. IMPRESSION: NO ACUTE RADIOGRAPHIC FINDING IN THE CHEST. TECHNICAL DOCUMENTATION: JOB ID: [id number] [facility]- All Rights Reserved Reading location - IP/workstation name: [email or web address]
[2018-05-23] MEDS ORDERED: CLONIDINE HCL 0.1 MG TABLET PO ONE ×2 (11:27→12:43)
[2018-05-23] MEDS ORDERED: MORPHINE SULFATE 10 MG/ML INJ IV ONE (11:32)
[2018-05-23 11:55] LABS: ALANINE AMINOTRANSFERASE 26 U/L (9-52); ALKALINE PHOSPHATASE 69 U/L (38-126); ANION GAP 13 (5-19); ASPARTATE AMINO TRANSFERASE 18 U/L (14-36); BILIRUBIN,DIRECT 0.3 mg/dL (0.0-0.4); BILIRUBIN,TOTAL 1.6 mg/dL (0.2-1.3); BLOOD UREA NITROGEN 12 mg/dL (7-20); CALCIUM 9.9 mg/dL (8.4-10.2); CARBON DIOXIDE 23 mmol/L (22-30); CHLORIDE 104 mmol/L (98-107); CREATINE KINASE 76 U/L (30-135); GLUCOSE 115 mg/dL (75-110); POTASSIUM 3.2 mmol/L (3.6-5.0); SODIUM 139.5 mmol/L (137-145); TOTAL PROTEIN 8.1 g/dL (6.3-8.2)
[2018-05-23 12:06] LABS: CREATINE KINASE MB 0.87 ng/mL (<4.55)
[2018-05-23 12:07] LABS: TROPONIN I < 0.012 ng/mL
--- NOTE | 2018-05-23 13:20 | EKG REPORT ---
SEVERITY:- DEFECTIVE ECG - RIGHT AND LEFT ARM LEADS REVERSED, PLEASE REPEAT ECG : Confirmed by: Nader Perez MD 23-May-2018 13:20:04
[2018-05-23] MEDS ORDERED: LABETALOL HCL INJ 20 MG/4 ML DISP.SYRIN IV PRN (13:32)
[2018-05-23] MEDS ORDERED: HYDROCODONE/ACETAMINOPHEN 5-325 MG TABLET PO PRN (13:46)
[2018-05-23] MEDS: ONDANSETRON HCL INJ/PF 4 MG/2 ML SDV IV PRN ×2 (15:07→19:08)
--- NOTE | 2018-05-23 16:37 | PDOC H&P ---
History of Present Illness Admission Date/PCP: 05/23/18 12:56 ASHA MONTIEL MD History of Present Illness: VIKKI MCKINLEY is a 78 year old female who began to have left hand numbness for about 2 hours yesterday. She said she also had a frontal headache all day yesterday. She says she still has a headache now. She said this morning she began to experience a little bit of right hand numbness and so she called her son. Her son spoke with her on the phone and said he was coming to get her. While he was on the way over he called her back and said at that time he believe her speech had changed and she was slurring a little bit. EMS did not note any slurring of speech according to her report that I was told. At this time she is asymptomatic except for her headache and a very high blood pressure. CT of the head noted what looks like an acute right MCA territory infarct. Past Medical History Cardiac Medical History: Reports: Coronary Artery Disease, Hypertension - ON MEDS Denies: Congestive Heart Failure, Myocardial Infarction Pulmonary Medical History: Denies: Asthma, Bronchitis, Chronic Obstructive Pulmonary Disease (COPD), Pneumonia, Tuberculosis Neurological Medical History: Denies: Seizures Renal/ Medical History: Denies: End Stage Renal Disease GI Medical History: Denies: Cirrhosis, Gastroesophageal Reflux Disease, Hepatitis, Hiatal Hernia Musculoskeltal Medical History: Reports: Arthritis - B/L KNEES, 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 Psychiatric Medical History: Denies: Bipolar Disorder, Depression Hematology: Reports: Anemia - A CHILD Denies: Sickle Cell Disease, Bleeding Tendencies Past Surgical History Past Surgical History: Reports: Hysterectomy Denies: Amputation, Mastectomy, Pacemaker Social History Smoking Status: Never Smoker Family History Family History: Reviewed & Not Pertinent Parental Family History Reviewed: Yes - Father of a stroke in his 70s Children Family History Reviewed: Yes - Noncontributory Sibling(s) Family History Reviewed.: Yes - Brother had a stroke in his 60s Medication/Allergy Home Medications: [place]-3 Acid Ethyl Esters 2 gm PO BID 04/16/14 Levothyroxine Sodium 88 mcg PO Q6AM 07/08/17 Omeprazole 20 mg PO DAILY 07/08/17 Latanoprost [Xalatan] 1 drop OU QHS 08/12/17 Apixaban [Eliquis 2.5 mg Tablet] 2.5 mg PO Q12 #60 tablet 03/02/18 Lisinopril [Prinivil 10 mg Tablet] 10 mg PO DAILY #30 tablet 03/02/18 Metoprolol Tartrate [Lopressor 50 mg Tablet] 50 mg PO Q12 #60 tablet 03/02/18 Rosuvastatin Calcium [Crestor] 40 mg PO QHS 05/23/18 Allergies/Adverse Reactions: Sulfa (Sulfonamide Antibiotics) Allergy (Verified 03/01/18 11:15) Review of Systems All systems: reviewed and no additional remarkable complaints except as stated - 10 point review of systems was conducted with the patient and was negative except as noted above Physical Exam Vital Signs: Temp Pulse Resp BP Pulse Ox 58 L 13 176/68 H 95 05/23/18 10:00 05/23/18 14:02 05/23/18 14:02 05/23/18 14:02 General appearance: PRESENT: cooperative, disheveled, mild distress, obese Head exam: PRESENT: atraumatic, normocephalic Eye exam: PRESENT: EOMI, PERRLA. ABSENT: conjunctival injection, nystagmus, scleral icterus Ear exam: PRESENT: normal external ear exam Mouth exam: PRESENT: moist, neck supple Throat exam: ABSENT: post pharyngeal erythema Neck exam: PRESENT: full ROM. ABSENT: carotid bruit, JVD, lymphadenopathy, meningismus, tenderness, thyromegaly Respiratory exam: PRESENT: clear to auscultation lin, symmetrical, unlabored. ABSENT: accessory muscle use, chest wall tenderness, rales, rhonchi, tachypnea, wheezes Cardiovascular exam: PRESENT: RRR, +S1, +S2. ABSENT: diastolic murmur, systolic murmur Vascular exam: PRESENT: normal capillary refill GI/Abdominal exam: PRESENT: normal bowel sounds, soft. ABSENT: distended, guarding, rebound, tenderness Extremities exam: ABSENT: clubbing, pedal edema Musculoskeletal exam: PRESENT: normal inspection. ABSENT: deformity Neurological exam: PRESENT: awake, oriented to person, oriented to place, oriented to time, oriented to situation, CN II-XII grossly intact. ABSENT: motor sensory deficit Psychiatric exam: PRESENT: flat affect Skin exam: PRESENT: dry, warm Results Impressions: Chest X-Ray 05/23/18 10:09 IMPRESSION: NO ACUTE RADIOGRAPHIC FINDING IN THE CHEST. Head CT 05/23/18 10:09 IMPRESSION: Question right MCA distribution infarct with low-attenuation present. No acute hemorrhage. EVIDENCE OF ACUTE STROKE: YES. Assessment & Plan - Diagnosis (1) Acute ischemic right MCA stroke Is this a current diagnosis for this admission?: Yes Plan: Permissive hypertension for the first 24 hours. As needed labetalol with parameters, for greater than systolic of over 220 or diastolic over 120. Aspirin and statin. We will check her lipid panel and hemoglobin A1c. We will try to get an MRI of the brain and MRA of the head and neck. No evidence on CT that this is embolic, and even though she has a history of atrial fibrillation, she is in a sinus rhythm right now, she has been on anticoagulant for the last few months. Because she is in a sinus rhythm and because of her blood pressure , the anticoagulant will be held for the time being. Have her evaluated by PT, OT, and speech therapy. - Time Time Spent: 50 to 70 Minutes - Inpatient Certification Medical Necessity: Need Close Monitoring Due to Risk of Patient Decompensation, Need For Continuous Telemetry Monitoring, Need for Neurological Checks
[2018-05-23] MEDS: ATORVASTATIN CALCIUM 80 MG TABLET PO SCH (23:35)
[2018-05-23] MEDS: LATANOPROST 0.005% OPH SOLN 2.5 ML OU SCH (23:36)
[2018-05-24] MEDS ORDERED: SCOPOLAMINE HYDROBROMIDE 1.5 MG PATCH.TD72 TD ONE (00:20)
[2018-05-24 05:20] LABS: HEMATOCRIT 41.3 % (36.0-47.0); HEMOGLOBIN 14.3 g/dL (12.0-15.5); MEAN CORPUSCULAR HEMOGLOBIN 28.6 pg (27.0-33.4); MEAN CORPUSCULAR HGB CONC 34.6 g/dL (32.0-36.0); MEAN CORPUSCULAR VOLUME 83 fl (80-97); PLATELET COUNT 159 10^3/uL (150-450); RED BLOOD COUNT 4.99 10^6/uL (3.72-5.28); RED CELL DISTRIBUTION WIDTH 14.6 % (11.5-14.0); WHITE BLOOD COUNT 10.7 10^3/uL (4.0-10.5)
[2018-05-24 05:46] LABS: ANION GAP 11 (5-19); BLOOD UREA NITROGEN 15 mg/dL (7-20); CALCIUM 9.6 mg/dL (8.4-10.2); CARBON DIOXIDE 23 mmol/L (22-30); CHLORIDE 104 mmol/L (98-107); CHOLESTEROL 145.54 mg/dL (0-200); GLUCOSE 111 mg/dL (75-110); POTASSIUM 3.3 mmol/L (3.6-5.0); SODIUM 138.4 mmol/L (137-145); TRIGLYCERIDES 119 mg/dL (<150)
[2018-05-24 05:57] LABS: DIRECT LDL 84 mg/dL (<100)
[2018-05-24] MEDS: LANSOPRAZOLE 15 MG TAB.RAP.DR PO SCH (05:59)
[2018-05-24] MEDS: LEVOTHYROXINE SODIUM 0.088 MG TABLET PO SCH (05:59)
[2018-05-24] MEDS ORDERED: LORAZEPAM INJ 2 MG/1 ML VIAL IV PRN (08:59)
[2018-05-24] MEDS ORDERED: POTASSIUM CHLORIDE 10 MEQ CAPSULE.ER PO ONE (09:00)
[2018-05-24] MEDS ORDERED: ESTRADIOL 0.5 MG TOP SCH (10:00)
[2018-05-24] MEDS: ASPIRIN 325 MG TABLET, ENT COATED PO SCH (10:44)
--- NOTE | 2018-05-24 10:55 | RADIOLOGY REPORT (SQ) ---
EXAM DESCRIPTION: MRI HEAD WITHOUT; MRA HEAD WITHOUT COMPLETED DATE/TIME: 05/24/2018 10:32 am REASON FOR STUDY: acute right MCA infarct on CT COMPARISON: CT brain 05/23/2018 TECHNIQUE: Multiplanar imaging includes non-contrasted T1, T2, FLAIR, and diffusion with ADC map seq uences. Images stored on PACS. 3D [id number] [place] MRA exam was performed. Source data and maximum intensity re- pro jected images/3D reconstructions were reviewed. Images saved to pac's. LIMITATIONS: None. FINDINGS: ANATOMY: No anomalies. Normal vascular flow voids. Pituitary fossa normal. CSF SPACES: Normal in size and contour. No hemorrhage. CEREBRUM: Sulci and gyri normal in size and contour. Minimal spotty age-appropriate increased bifron jerrod white matter signal on FLAIR imaging. No evidence of hemorrhage, mass, or extraaxial fluid colle ction. POSTERIOR FOSSA: No signal alteration. No hemorrhage. No edema, masses or mass effect. Internal jasbir tory canals, cerebello-pontine angles, mastoids normal. DIFFUSION IMAGING: Negative for acute or sub-acute infarction. ORBITS: No masses. Globes normal. PARANASAL SINUSES: No fluid levels. Mucosa normal. [place] MRA: No significant finding. No sulcal of [place] stenosis, vascular malformation, o r aneurysm. IMPRESSION: ESSENTIALLY NORMAL MRI OF THE BRAIN/ MRA EXAM [place] OF [place] WITHOUT INTRAVENOUS GADOL INIUM CONTRAST. EVIDENCE OF ACUTE STROKE: NO. TECHNICAL DOCUMENTATION: JOB ID: [id number] [employer]- All Rights Reserved Reading location - IP/workstation name: [facility]-RR
--- NOTE | 2018-05-24 10:55 | RADIOLOGY REPORT (SQ) ---
EXAM DESCRIPTION: MRI HEAD WITHOUT; MRA HEAD WITHOUT COMPLETED DATE/TIME: 05/24/2018 10:32 am REASON FOR STUDY: acute right MCA infarct on CT COMPARISON: CT brain 05/23/2018 TECHNIQUE: Multiplanar imaging includes non-contrasted T1, T2, FLAIR, and diffusion with ADC map seq uences. Images stored on PACS. 3D [id number] [place] of [place] MRA exam was performed. Source data and maximum intensity re- pro jected images/3D reconstructions were reviewed. Images saved to pac's. LIMITATIONS: None. FINDINGS: ANATOMY: No anomalies. Normal vascular flow voids. Pituitary fossa normal. CSF SPACES: Normal in size and contour. No hemorrhage. CEREBRUM: Sulci and gyri normal in size and contour. Minimal spotty age-appropriate increased bifron jerrod white matter signal on FLAIR imaging. No evidence of hemorrhage, mass, or extraaxial fluid colle ction. POSTERIOR FOSSA: No signal alteration. No hemorrhage. No edema, masses or mass effect. Internal jasbir tory canals, cerebello-pontine angles, mastoids normal. DIFFUSION IMAGING: Negative for acute or sub-acute infarction. ORBITS: No masses. Globes normal. PARANASAL SINUSES: No fluid levels. Mucosa normal. [place] of [place] MRA: No significant finding. No sulcal of [place] stenosis, vascular malformation, o r aneurysm. IMPRESSION: ESSENTIALLY NORMAL MRI OF THE BRAIN/ MRA EXAM [place] OF [place] WITHOUT INTRAVENOUS GADOL INIUM CONTRAST. EVIDENCE OF ACUTE STROKE: NO. TECHNICAL DOCUMENTATION: JOB ID: [id number] [employer]- All Rights Reserved Reading location - IP/workstation name: [facility]-RR
[2018-05-24] MEDS: ONDANSETRON HCL INJ/PF 4 MG/2 ML SDV IV PRN (12:04)
--- NOTE | 2018-05-24 16:51 | PDOC DISCHARGE SUMMARY ---
General - Admit/Disc Date/PCP Admission Date/Primary Care Provider: 05/23/18 12:56 ASHA MONITEL MD Discharge Date: 05/24/18 - Discharge Diagnosis (1) Migraine variant Is this a current diagnosis for this admission?: Yes Summary: Initially presented with headache and a brief spell of some left hand numbness that spontaneously resolved, followed by some right hand numbness that spontaneously resolved the next day, which was the day of admission. Initial CT scan of the head showed a possible early right MCA territory infarct. Her blood pressure was running high but it started to come down on its own without intervention by the next day. MRI of the brain showed that she did not have any stroke and MRA of the head was negative for any significant intracranial stenosis. Her headache had resolved by the time of discharge and she was sitting up in the bed with the lights on, conversant and in good spirits. - Additional Information Resuscitation Status: Full Code Discharge Diet: Cardiac Discharge Activity: No Driving, Supervised Activity Home Medications: [place]-3 Acid Ethyl Esters 2 gm PO BID 04/16/14 Levothyroxine Sodium 88 mcg PO Q6AM 07/08/17 Omeprazole 20 mg PO DAILY 07/08/17 Apixaban [Eliquis 2.5 mg Tablet] 2.5 mg PO Q12 #60 tablet 03/02/18 Lisinopril [Prinivil 10 mg Tablet] 10 mg PO DAILY #30 tablet 03/02/18 Metoprolol Tartrate [Lopressor 50 mg Tablet] 50 mg PO Q12 #60 tablet 03/02/18 Rosuvastatin Calcium [Crestor] 40 mg PO QHS 05/23/18 History of Present Illness History of Present Illness: VIKKI MCKINLEY is a 78 year old female who began to have left hand numbness for about 2 hours yesterday. She said she also had a frontal headache all day yesterday. She says she still has a headache now. She said this morning she began to experience a little bit of right hand numbness and so she called her son. Her son spoke with her on the phone and said he was coming to get her. While he was on the way over he called her back and said at that time he believe her speech had changed and she was slurring a little bit. EMS did not note any slurring of speech according to her report that I was told. At this time she is asymptomatic except for her headache and a very high blood pressure. CT of the head noted what looks like an acute right MCA territory infarct. Hospital Course Hospital Course: Her workup was negative for acute stroke. In terms of risk factor modification , her lipids are excellent and she is on a statin medication. She is not on aspirin but she does take an anticoagulant, which is for atrial fibrillation, but it should be noted that she is been in a sinus rhythm the whole time she is been in our facility. Her hemoglobin A1c was 5.3%. She does not smoke. We are resuming her blood pressure medications. In terms of risk factor modification, her blood pressure control should be optimized. This can be followed up as an outpatient. Her labs and examination were reassuring and she was in good condition at time of discharge. When her family stood her up she was getting a little bit of transient dizziness and they did not want her discharged, and wanted to wait until tomorrow morning. However, she has had an extensive neurological workup which has been negative, and some dizziness upon standing which is transient in nature, like she had, it is not a reason for continued hospitalization. Physical Exam Vital Signs: Temp Pulse Resp BP Pulse Ox 98.4 F 72 16 178/58 H 99 05/24/18 16:11 05/24/18 16:11 05/24/18 16:11 05/24/18 16:11 05/24/18 16:11 Intake & Output 05/23/18 05/24/18 05/25/18 06:59 06:59 06:59 Intake Total 1000 220 Output Total 800 Balance 1000 -580 Weight 76.5 kg General appearance: PRESENT: no acute distress, cooperative, disheveled, obese Respiratory exam: PRESENT: clear to auscultation lin, symmetrical, unlabored. ABSENT: accessory muscle use, chest wall tenderness, rales, rhonchi, tachypnea, wheezes Cardiovascular exam: PRESENT: RRR, +S1, +S2. ABSENT: diastolic murmur, systolic murmur Vascular exam: PRESENT: normal capillary refill GI/Abdominal exam: PRESENT: normal bowel sounds, soft. ABSENT: distended, guarding, rebound, tenderness Extremities exam: ABSENT: clubbing, pedal edema Musculoskeletal exam: PRESENT: normal inspection. ABSENT: deformity Neurological exam: PRESENT: alert, awake, oriented to person, oriented to place , oriented to time, oriented to situation, CN II-XII grossly intact. ABSENT: motor sensory deficit Psychiatric exam: PRESENT: appropriate affect, normal mood Skin exam: PRESENT: dry, warm Results Laboratory Results: 05/24/18 04:48 05/24/18 04:48 05/24/18 05/24/18 04:48 04:48 WBC 10.7 H RBC 4.99 Hgb 14.3 Hct 41.3 MCV 83 MCH 28.6 MCHC 34.6 RDW 14.6 H Plt Count 159 Sodium 138.4 Potassium 3.3 L Chloride 104 Carbon Dioxide 23 Anion Gap 11 BUN 15 Creatinine 0.52 Est GFR ( Amer) > 60 Est GFR (Non-Af Amer) > 60 Glucose 111 H Calcium 9.6 Triglycerides 119 Cholesterol 145.54 LDL Cholesterol Direct 84 VLDL Cholesterol 24.0 HDL Cholesterol 45 Impressions: Chest X-Ray 05/23/18 10:09 IMPRESSION: NO ACUTE RADIOGRAPHIC FINDING IN THE CHEST. Head CT 05/23/18 10:09 IMPRESSION: Question right MCA distribution infarct with low-attenuation present. No acute hemorrhage. EVIDENCE OF ACUTE STROKE: YES. Brain MRI with MRA 05/24/18 00:00 IMPRESSION: ESSENTIALLY NORMAL MRI OF THE BRAIN/ MRA EXAM [place] WITHOUT INTRAVENOUS GADOLINIUM CONTRAST. EVIDENCE OF ACUTE STROKE: NO. Head MRI 05/24/18 00:00 IMPRESSION: ESSENTIALLY NORMAL MRI OF THE BRAIN/ MRA EXAM [place] WITHOUT INTRAVENOUS GADOLINIUM CONTRAST. EVIDENCE OF ACUTE STROKE: NO. Qualifiers - * PATIENT BEING DISCHARGED WITH ANY OF THE FOLLOWING DIAGNOSIS: No
[2018-05-24] MEDS: ATORVASTATIN CALCIUM 80 MG TABLET PO SCH (22:45)
[2018-05-24] MEDS: LATANOPROST 0.005% OPH SOLN 2.5 ML OU SCH (22:45)
[2018-05-25] MEDS: LANSOPRAZOLE 15 MG TAB.RAP.DR PO SCH (06:42)
[2018-05-25] MEDS: LEVOTHYROXINE SODIUM 0.088 MG TABLET PO SCH (06:42)
[2018-05-25 06:45] LABS: HEMATOCRIT 42.4 % (36.0-47.0); HEMOGLOBIN 14.4 g/dL (12.0-15.5); MEAN CORPUSCULAR HEMOGLOBIN 28.4 pg (27.0-33.4); MEAN CORPUSCULAR VOLUME 84 fl (80-97); PLATELET COUNT 157 10^3/uL (150-450); RED BLOOD COUNT 5.07 10^6/uL (3.72-5.28); RED CELL DISTRIBUTION WIDTH 14.8 % (11.5-14.0); WHITE BLOOD COUNT 11.9 10^3/uL (4.0-10.5)
[2018-05-25 07:06] LABS: ANION GAP 12 (5-19); CALCIUM 9.9 mg/dL (8.4-10.2); CARBON DIOXIDE 22 mmol/L (22-30); CHLORIDE 104 mmol/L (98-107); GLUCOSE 114 mg/dL (75-110); POTASSIUM 3.6 mmol/L (3.6-5.0); SODIUM 138.1 mmol/L (137-145)
[2018-05-25 08:51] LABS: BLOOD UREA NITROGEN 35 mg/dL (7-20)
[2018-05-25] MEDS: ASPIRIN 325 MG TABLET, ENT COATED PO SCH (10:43)
[2018-05-25 13:25] VITALS: BP 151/58
--- NOTE | 2018-05-25 21:52 | PDOC DISCHARGE SUMMARY ---
General - Admit/Disc Date/PCP Admission Date/Primary Care Provider: 05/23/18 12:56 ASHA MONTIEL MD Discharge Date: 05/25/18 - Discharge Diagnosis (1) Migraine variant Is this a current diagnosis for this admission?: Yes Summary: The presentation was concerning for an ischemic stroke however the patient was having bilateral symptoms. The elevated blood pressure with headache and bilateral symptoms are more consistent with an atypical migraine. The patient is feeling better. There is no headache. She does not have any of the numbness in her hands. (2) Atrial flutter Is this a current diagnosis for this admission?: Yes Summary: The patient has an underlying irregularly irregular rhythm. Her rate was c ontrolled so we will continue her metoprolol 50 mg twice daily. Her chronic anticoagulation is with Eliquis 2.5 mg twice daily. (3) Essential hypertension Is this a current diagnosis for this admission?: Yes Summary: The patient's blood pressure was not very well controlled on admission. She is on lisinopril 10 mg daily and metoprolol 50 mg twice daily. I encouraged her to get a new home blood pressure monitor (hers is broken). I suggested she check her pressure at various times during the day. It sounds like her elevated pressure may have triggered the migraine and her symptom complex. I believe she has a follow-up with her assessment specialist Dr. Larios. - Additional Information Resuscitation Status: Full Code Discharge Diet: Cardiac Discharge Activity: No Driving, Supervised Activity Home Medications: [place]-3 Acid Ethyl Esters 2 gm PO BID 04/16/14 Levothyroxine Sodium 88 mcg PO Q6AM 07/08/17 Omeprazole 20 mg PO DAILY 07/08/17 Apixaban [Eliquis 2.5 mg Tablet] 2.5 mg PO Q12 #60 tablet 03/02/18 Lisinopril [Prinivil 10 mg Tablet] 10 mg PO DAILY #30 tablet 03/02/18 Metoprolol Tartrate [Lopressor 50 mg Tablet] 50 mg PO Q12 #60 tablet 03/02/18 Rosuvastatin Calcium [Crestor] 40 mg PO QHS 05/23/18 History of Present Illness Patient complains of: Headache with numbness in her hands History of Present Illness: VIKKI MCKINLEY is a 78 year old female who presented to the hospital on May 23. She was having bilateral hand numbness that resolved spontaneously. CT scan of the head suggested possible right ischemic stroke however a subsequent MRI confirmed that she in fact did not have a stroke. MRA was negative as well. The patient's blood pressure was under better control by the time of discharge. I did encourage the patient to monitor her blood pressure at home closely and follow-up with cardiology. Hospital Course Hospital Course: The patient's symptoms actually resolved spontaneously. Her blood pressure did improve. She feels more comfortable going home today. I did review the physical and occupational therapy evaluations and I have ordered home health to provide additional physical and occupational therapy for the patient. She will continue her current medications. I encouraged her to increase her fluids and check her blood pressure intermittently as well. Physical Exam Vital Signs: Temp Pulse Resp BP Pulse Ox 98.0 F 42 L 16 151/58 H 100 05/25/18 13:24 05/25/18 13:24 05/25/18 13:24 05/25/18 13:24 05/25/18 13:24 Intake & Output 05/24/18 05/25/18 05/26/18 06:59 06:59 06:59 Intake Total 1000 420 Output Total 1450 Balance 1000 -1030 Weight 76.5 kg 77.7 kg General appearance: PRESENT: no acute distress, cooperative, well-developed Head exam: PRESENT: atraumatic, normocephalic Eye exam: PRESENT: conjunctiva pink. ABSENT: scleral icterus Respiratory exam: PRESENT: clear to auscultation lin. ABSENT: rales, rhonchi, wheezes Cardiovascular exam: PRESENT: irregular rhythm Pulses: PRESENT: normal radial pulses, normal dorsalis pedis pul GI/Abdominal exam: PRESENT: normal bowel sounds, soft. ABSENT: tenderness Extremities exam: ABSENT: pedal edema Musculoskeletal exam: PRESENT: normal inspection Neurological exam: PRESENT: alert, awake, oriented to person, oriented to place, oriented to time, oriented to situation, CN II-XII grossly intact Psychiatric exam: PRESENT: appropriate affect, normal mood. ABSENT: anxious Focused psych exam: ABSENT: delusional, restlessness Skin exam: PRESENT: dry, normal color, warm Results Laboratory Results: 05/25/18 04:36 05/25/18 04:36 05/25/18 05/25/18 04:36 04:36 WBC 11.9 H RBC 5.07 Hgb 14.4 Hct 42.4 MCV 84 MCH 28.4 MCHC 34.0 RDW 14.8 H Plt Count 157 Sodium 138.1 Potassium 3.6 Chloride 104 Carbon Dioxide 22 Anion Gap 12 BUN 35 H D Creatinine 1.05 Est GFR ( Amer) > 60 Est GFR (Non-Af Amer) 50 L Glucose 114 H Calcium 9.9 05/23/18 05/23/18 05/23/18 10:04 10:04 11:22 Creatine Kinase Cancelled 76 CK-MB (CK-2) Cancelled Troponin I Cancelled 05/23/18 11:22 Creatine Kinase CK-MB (CK-2) 0.87 Troponin I < 0.012 Impressions: Chest X-Ray 05/23/18 10:09 IMPRESSION: NO ACUTE RADIOGRAPHIC FINDING IN THE CHEST. Head CT 05/23/18 10:09 IMPRESSION: Question right MCA distribution infarct with low-attenuation present. No acute hemorrhage. EVIDENCE OF ACUTE STROKE: YES. Brain MRI with MRA 05/24/18 00:00 IMPRESSION: ESSENTIALLY NORMAL MRI OF THE BRAIN/ MRA EXAM [place] WITHOUT INTRAVENOUS GADOLINIUM CONTRAST. EVIDENCE OF ACUTE STROKE: NO. Head MRI 05/24/18 00:00 IMPRESSION: ESSENTIALLY NORMAL MRI OF THE BRAIN/ MRA EXAM [place] WITHOUT INTRAVENOUS GADOLINIUM CONTRAST. EVIDENCE OF ACUTE STROKE: NO. Qualifiers - * PATIENT BEING DISCHARGED WITH ANY OF THE FOLLOWING DIAGNOSIS: No Plan Discharge Plan: The patient will be discharged home. Home health will work with the patient specifically for physical and occupational therapy. I have encouraged her to monitor her blood pressure more closely as well as drink more fluids. Her son will also be stopping and regularly. Time Spent: Greater than 30 Minutes
== END 2018-05-25 13:54 | disposition home health service (06) | DRG 103 ==
LOC: ER 09:46 → OBSVTOIN 12:56 → EH 12:56 → 3N 20:40
PROVIDERS: ADMIT Internal Medicine; ATTEND Internal Medicine
DX: G43.809 Other migraine, not intractable, without status migrainosus (principal); I48.92 Unspecified atrial flutter; I10 Essential (primary) hypertension; I48.91 Unspecified atrial fibrillation; I25.10 Atherosclerotic heart disease of native coronary artery without angina pectoris; R47.81 Slurred speech; Z79.01 Long term (current) use of anticoagulants
CPT/HCPCS: 36415; 70450; 70544; 70551; 71045; 80048; 80053; 80061; 81001; 82550; 82553; 83036; 84484; 85025; 85027; 85610; 85730; 93005; 93010; 96361; 96374; 96375; 99285; G8978-GP; G8979-GP; G8987-GO; G8988-GO; G8999-GN; G9158-GN; G9186-GN; J2060; J2270; J2405; J2765; J3490; J7030

== ENCOUNTER 2019-06-29 07:56 | Emergency (ER) | payer MEDICARE ==
[2019-06-29 09:21] LABS: ABSOLUTE LYMPHOCYTES (AUTO) 0.9 10^3/uL (0.5-4.7); ABSOLUTE MONOCYTES (AUTO) 0.6 10^3/uL (0.1-1.4); ABSOLUTE NEUT (AUTO) 6.4 10^3/uL (1.7-8.2); BASOPHILS % (AUTO) 0.2 % (0-2); EOSINOPHILS % (AUTO) 0.4 % (0-6); HEMATOCRIT 42.6 % (36.0-47.0); HEMOGLOBIN 14.5 g/dL (12.0-15.5); LYMPHOCYTES % (AUTO) 11.8 % (13-45); MEAN CORPUSCULAR HEMOGLOBIN 29.9 pg (27.0-33.4); MEAN CORPUSCULAR HGB CONC 34.2 g/dL (32.0-36.0); MEAN CORPUSCULAR VOLUME 88 fl (80-97); MONOCYTES % (AUTO) 7.7 % (3-13); PLATELET COUNT 169 10^3/uL (150-450); RED BLOOD COUNT 4.87 10^6/uL (3.72-5.28); RED CELL DISTRIBUTION WIDTH 13.4 % (11.5-14.0); SEGMENTED NEUTROPHILS % (AUTO) 79.9 % (42-78); TOTAL CELLS COUNTED % (AUTO) 100 %
[2019-06-29 09:24] LABS: APPEARANCE,URINE SLIGHTLY-CLOUDY; BILIRUBIN,URINE NEGATIVE (NEGATIVE); COLOR,URINE YELLOW; GLUCOSE, URINE 50 mg/dL (NEGATIVE); KETONES,URINE TRACE mg/dL (NEGATIVE); LEUKOCYTE ESTERASE,URINE SMALL (NEGATIVE); NITRITE,URINE NEGATIVE (NEGATIVE); PROTEIN,URINE >=500 mg/dL (NEGATIVE); URINE SPECIFIC GRAVITY 1.024; UROBILINOGEN,URINE NEGATIVE mg/dL (<2.0)
[2019-06-29 09:39] LABS: ALKALINE PHOSPHATASE 66 U/L (38-126); ANION GAP 10 (5-19); ASPARTATE AMINO TRANSFERASE 21 U/L (14-36); BILIRUBIN,TOTAL 0.8 mg/dL (0.2-1.3); BLOOD UREA NITROGEN 19 mg/dL (7-20); CARBON DIOXIDE 27 mmol/L (22-30); CHLORIDE 104 mmol/L (98-107); GLUCOSE 116 mg/dL (75-110); POTASSIUM 4.4 mmol/L (3.6-5.0); TOTAL PROTEIN 7.8 g/dL (6.3-8.2)
--- NOTE | 2019-06-29 11:06 | RADIOLOGY REPORT (SQ) ---
EXAM DESCRIPTION: CT ABD/PELVIS NO ORAL OR IV COMPLETED DATE/TIME: 06/29/2019 9:25 am REASON FOR STUDY: Left flank pain, hematuria COMPARISON: 01/02/2014. TECHNIQUE: CT scan of the abdomen and pelvis performed without intravenous or oral contrast. Images reviewed with lung, soft tissue, and bone windows. Reconstructed coronal and sagittal MPR images revi ewed. All images stored on PACS. All CT scanners at this facility use dose modulation, iterative reconstruction, and/or weight based d osing when appropriate to reduce radiation dose to as low as reasonably achievable (ALARA). [facility]: Dose Right [facility]: CareDose [facility]: Dose Right [facility]: Teradose 4D [facility]: Smart invi RADIATION DOSE: CT Rad equipment meets quality standard of care and radiation dose reduction techniq ues were employed. CTDIvol: 8.5 mGy. DLP: 469 mGy-cm.mGy. LIMITATIONS: None. FINDINGS: LOWER CHEST: No significant findings. No nodules or infiltrates. NON-CONTRASTED LIVER, SPLEEN, ADRENALS: Evaluation limited by lack of IV contrast. No identified sign ificant masses. PANCREAS: No masses. No peripancreatic inflammatory changes. GALLBLADDER: No identified stones by CT criteria. No inflammatory changes to suggest cholecystitis. RIGHT KIDNEY AND URETER: No suspicious masses. Assessment limited by lack of IV contrast. No signif icant calcifications. No hydronephrosis or hydroureter. LEFT KIDNEY AND URETER: No suspicious masses. Assessment limited by lack of IV contrast. No signifi cant calcifications. No hydronephrosis or hydroureter. AORTA AND RETROPERITONEUM: No aneurysm. No retroperitoneal masses or adenopathy. BOWEL AND PERITONEAL CAVITY: No obvious masses or inflammatory changes. No free fluid. APPENDIX: Normal. PELVIS, BLADDER, AND ABDOMINAL WALL:No abnormal masses. No free fluid. Bladder normal. There is a ti ny calcification in the lower you would GE diaphragm just to the right of midline which has been pres ent since 2013 and likely represents a small vascular calcification. No calcified pelvic phleboliths . BONES: No significant findings. OTHER: No other significant finding. IMPRESSION: NO SIGNIFICANT OR ACUTE PROCESS IN THE ABDOMEN OR PELVIS. No renal or ureteral calculi. No hydronephrosis. COMMENT: Quality ID # [id number]: Final reports with documentation of one or more dose reduction techniques (e.g., Automated exposure control, adjustment of the mA and/or kV according to patient size, use of iterative reconstruction technique) TECHNICAL DOCUMENTATION: JOB ID: [id number] [employer]- All Rights Reserved Reading location - IP/workstation name: [email or web address]
[2019-06-29 11:44] VITALS: BP 163/54
--- NOTE | 2019-06-29 16:36 | ER Document Report ---
Entered by MARY CEJA SCRIBE 06/29/19 0959 Acting as scribe for:FAUSTINO SESAY MD ED General - General Chief Complaint: Flank Pain Stated Complaint: FLANK PAIN Time Seen by Provider: 06/29/19 09:43 Primary Care Provider: ASHA MONTIEL MD [Primary Care Provider] - Follow up as needed Mode of Arrival: Ambulatory Information source: Patient Notes: 79 year old female presents to the ED with left flank pain that started in the left lower back two weeks ago. Patient reports that she was prescribed Macrobid one week ago and she adds that the antibiotics "eased it off a little" but does not elaborate further. Patient further mentions that initially the pain seemed to be localized to the left flank but it has begun to now radiate into the left lower quadrant. Pain is worse when she turns and bends. There is no fever. There is no nausea or vomiting. TRAVEL OUTSIDE OF THE [place] IN LAST 30 DAYS: No - Related Data Allergies/Adverse Reactions: Sulfa (Sulfonamide Antibiotics) Allergy (Verified 03/01/18 11:15) Home Medications: Does not know names Past Medical History - General Information source: Patient - Social History Smoking Status: Never Smoker Cigarette use (# per day): No Chew tobacco use (# tins/day): No Frequency of alcohol use: None Drug Abuse: None Family History: Reviewed & Not Pertinent Patient has suicidal ideation: No Patient has homicidal ideation: No - Past Medical History Cardiac Medical History: Reports: Hx Coronary Artery Disease, Hx Hypertension - ON MEDS Musculoskeletal Medical History: 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, 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 Past Surgical History: Reports: Hx Hysterectomy - Immunizations Hx Diphtheria, Pertussis, Tetanus Vaccination: Yes Hx Pneumococcal Vaccination: 04/07/13 Review of Systems - Review of Systems Constitutional: No symptoms reported EENT: No symptoms reported Cardiovascular: No symptoms reported Respiratory: No symptoms reported Gastrointestinal: No symptoms reported Genitourinary: No symptoms reported Female Genitourinary: No symptoms reported Musculoskeletal: See HPI, Back pain, Muscle pain, Other - Left flank pain Skin: No symptoms reported Hematologic/Lymphatic: No symptoms reported Neurological/Psychological: No symptoms reported -: Yes All other systems reviewed and negative Physical Exam - Vital signs Vitals: Temp Pulse Resp BP Pulse Ox 97.4 F 82 18 180/60 H 97 06/29/19 08:04 06/29/19 08:04 06/29/19 08:04 06/29/19 08:04 06/29/19 08:04 - Notes Notes: General: Alert, appears well. HEENT: Normocephalic. Atraumatic. PERRL. Extraocular movements intact. Oropharynx clear. Neck: Supple. Non-tender. Respiratory: No respiratory distress. Clear and equal breath sounds bilaterally. Cardiovascular: Regular rate and rhythm. Abdominal: There is tenderness with palpation over the lower flank on the left as well as just inferior to the rib margin laterally on the left. No distension. Normal Bowel Sounds. Back: No gross abnormalities. Left paraspinal lumbar musculature tenderness with palpation. Extremities: Moves all four extremities. Upper extremities: Normal inspection. Normal ROM. Lower extremities: Normal inspection. No edema. Normal ROM. Neurological: Normal cognition. AAOx4. Normal speech. Psychological: Normal affect. Normal Mood. Skin: Warm. Dry. Normal color. Course - Re-evaluation Re-evalutation: 06/29/19 11:27 The urinalysis suggested a persistent urinary tract infection despite being on Macrodantin for 7 days. We will change the antibiotic to Cipro, and culture the urine. CT scan does not show any explanation for her discomfort or her hematuria. The physical exam shows that the pain is muscular in origin. There was no rashes seen and the discomfort has been going on for close to 2 weeks. - Vital Signs Vital signs: Temp Pulse Resp BP Pulse Ox 98.0 F 67 16 163/54 H 97 06/29/19 11:43 06/29/19 11:43 06/29/19 11:43 06/29/19 11:43 06/29/19 11:43 - Laboratory Result Diagrams: 06/29/19 09:05 06/29/19 09:05 Laboratory results interpreted by me: 06/29/19 06/29/19 06/29/19 09:05 09:05 09:05 Lymph % (Auto) 11.8 L Seg Neutrophils % 79.9 H Glucose 116 H Urine Protein >=500 H Urine Glucose (UA) 50 H Urine Ketones TRACE H Urine Blood MODERATE H Ur Leukocyte Esterase SMALL H - Diagnostic Test Radiology reviewed: Image reviewed, Reports reviewed - Noncontrast CT scan abdomen pelvis is unremarkable. Discharge - Discharge Clinical Impression: Flank pain Urinary tract infection Qualifiers: Urinary tract infection type: site unspecified Hematuria presence: with hematuria Qualified Code(s): N39.0 - Urinary tract infection, site not specified; R31.9 - Hematuria, unspecified Condition: Stable Disposition: HOME, SELF-CARE Additional Instructions: Flank Pain: We weren't able to prove an exact cause for your flank pain. Pain in the flank can be caused by a muscle strain or spasm. Sometimes a kidney stone causes pain, but can't be found on our tests. Infection in the kidney should be evident on a urine test. Early shingles can occasionally cause flank pain, without the rash that proves the diagnosis. On rare occasions, disease of the pancreas, aorta, spleen, or colon can create pain in the flank. At this time, there's no evidence of a dangerous condition, and it seems safe for you to be at home. If the pain goes away and does not come back, no further testing will be needed. If pain persists, or becomes more severe, we may need to repeat some tests or order additional new testing. Blood in the urine, urgency to urinate frequently, and pain that radiates to the groin can indicate a kidney stone. Fever may mean that the pain is due to infection, either of the kidney or the colon (diverticulitis). If your pain is early shingles, you should develop an eruption of blisters in the painful area within a few days. Call the doctor or return if you have pain that is spreading or becoming more severe, pain that does not resolve with time, fever, or any other new symptoms. Urinary Tract Infection: Your evaluation indicates that you have a urinary tract infection. This is due to germs growing in the bladder. This is a common problem. This infection usually responds quickly to antibiotics. Your antibiotic should be taken exactly as prescribed. Drink plenty of fluids -- three to four quarts a day. Occasionally, a bladder anesthetic will be prescribed to help stop the feeling of urgency until the antibiotic has a chance to clear the infection. This may cause your urine to be dark orange. Certain urine infections require a culture. If the doctor obtained a culture, the results will be back in two days. You should call to see if a change in treatment is needed. A repeat urinalysis after you finish treatment is often recommended. The physician will let you know if further testing is required. Call the doctor if you develop fever, chills, flank pain, inability to urinate, or blood in the urine. Take the Cipro as prescribed for the urinary tract infection. Drink plenty of fluids. Take the Flexeril as prescribed along with ibuprofen every 8 hours for the back and flank muscle pain. Follow-up with your primary care provider if not improving. RETURN TO THE EMERGENCY ROOM IF ANY NEW OR WORSENING SYMPTOMS. Prescriptions: Ciprofloxacin HCl [Cipro 250 mg Tablet] 1 tab PO BID #10 tab Cyclobenzaprine HCl [Flexeril 5 mg Tablet] 5 mg PO TID PRN #15 tablet PRN Reason: Referrals: ASHA MONTIEL MD [Primary Care Provider] - Follow up as needed Scribe Attestation: 06/29/19 11:29 I personally performed the services described in the documentation, reviewed and edited the documentation which was dictated to the scribe in my presence, and it accurately records my words and actions. I personally performed the services described in the documentation, reviewed and edited the documentation which was dictated to the scribe in my presence, and it accurately records my words and actions.
== END 2019-06-29 11:56 | disposition home or self-care (01) ==
LOC: ER 07:56
DX: N39.0 Urinary tract infection, site not specified (principal); R31.9 Hematuria, unspecified; M79.18 Myalgia, other site; I25.10 Atherosclerotic heart disease of native coronary artery without angina pectoris; I10 Essential (primary) hypertension; Z88.2 Allergy status to sulfonamides
CPT/HCPCS: 36415; 74176; 80053; 81001; 83690; 85025; 87086; 99284

== ENCOUNTER 2019-09-28 14:51 | Emergency (ER) | payer MEDICARE ==
[2019-09-28 15:17] LABS: APPEARANCE,URINE CLEAR; BILIRUBIN,URINE NEGATIVE (NEGATIVE); COLOR,URINE YELLOW; GLUCOSE, URINE NEGATIVE (NEGATIVE); KETONES,URINE NEGATIVE (NEGATIVE); PROTEIN,URINE 100 mg/dL (NEGATIVE); URINE SPECIFIC GRAVITY 1.014; UROBILINOGEN,URINE NEGATIVE mg/dL (<2.0)
[2019-09-28 15:33] LABS: ABSOLUTE EOSINOPHILS # (AUTO) 0.1 10^3/uL (0.0-0.6); ABSOLUTE LYMPHOCYTES (AUTO) 1.5 10^3/uL (0.5-4.7); ABSOLUTE MONOCYTES (AUTO) 0.9 10^3/uL (0.1-1.4); BASOPHILS % (AUTO) 0.2 % (0-2); EOSINOPHILS % (AUTO) 1.3 % (0-6); HEMATOCRIT 41.2 % (36.0-47.0); HEMOGLOBIN 14.7 g/dL (12.0-15.5); LYMPHOCYTES % (AUTO) 15.4 % (13-45); MEAN CORPUSCULAR HEMOGLOBIN 31.4 pg (27.0-33.4); MEAN CORPUSCULAR HGB CONC 35.7 g/dL (32.0-36.0); MEAN CORPUSCULAR VOLUME 88 fl (80-97); MONOCYTES % (AUTO) 9.1 % (3-13); PLATELET COUNT 169 10^3/uL (150-450); RED BLOOD COUNT 4.69 10^6/uL (3.72-5.28); RED CELL DISTRIBUTION WIDTH 13.7 % (11.5-14.0); TOTAL CELLS COUNTED % (AUTO) 100 %; WHITE BLOOD COUNT 9.5 10^3/uL (4.0-10.5)
[2019-09-28 15:46] LABS: ALBUMIN 4.9 g/dL (3.5-5.0); ALKALINE PHOSPHATASE 63 U/L (38-126); ANION GAP 9 (5-19); ASPARTATE AMINO TRANSFERASE 23 U/L (14-36); BILIRUBIN,TOTAL 0.7 mg/dL (0.2-1.3); BLOOD UREA NITROGEN 18 mg/dL (7-20); CALCIUM 9.6 mg/dL (8.4-10.2); CARBON DIOXIDE 26 mmol/L (22-30); CHLORIDE 103 mmol/L (98-107); CREATINE KINASE 78 U/L (30-135); GLUCOSE 111 mg/dL (75-110); POTASSIUM 3.4 mmol/L (3.6-5.0); TOTAL PROTEIN 7.4 g/dL (6.3-8.2)
[2019-09-28 15:58] LABS: CREATINE KINASE MB 1.52 ng/mL (<4.55)
[2019-09-28 15:59] LABS: TROPONIN I < 0.012 ng/mL
--- NOTE | 2019-09-28 16:01 | RADIOLOGY REPORT (SQ) ---
EXAM DESCRIPTION: CHEST SINGLE VIEW IMAGES COMPLETED DATE/TIME: 09/28/2019 3:43 pm REASON FOR STUDY: chest pain COMPARISON: CT chest 03/01/2018 Chest film 05/23/2018 EXAM PARAMETERS: NUMBER OF VIEWS: One view. TECHNIQUE: Single frontal radiographic view of the chest acquired. RADIATION DOSE: NA LIMITATIONS: None. FINDINGS: LUNGS AND PLEURA: No opacities, masses or pneumothorax. No pleural effusion. MEDIASTINUM AND HILAR STRUCTURES: No masses. Contour normal. HEART AND VASCULAR STRUCTURES: Heart normal in size. Normal vasculature. BONES: No acute findings. HARDWARE: None in the chest. OTHER: No other significant finding. IMPRESSION: NO ACUTE RADIOGRAPHIC FINDING IN THE CHEST. TECHNICAL DOCUMENTATION: JOB ID: [id number] 2010 [employer]- All Rights Reserved Reading location - IP/workstation name: [email or web address]
--- NOTE | 2019-09-28 17:31 | ER Document Report ---
ED Cardiac - General Chief Complaint: Chest Pain Stated Complaint: CHEST PAIN Time Seen by Provider: 09/28/19 15:52 Primary Care Provider: ASHA MONTIEL MD [Primary Care Provider] - Follow up as needed Mode of Arrival: Ambulatory Information source: Patient Notes: Patient is a 89-year-old female presenting to the emergency department the onset of midsternal chest pain that began this morning. Patient reports it felt like indigestion and has since resolved. She denies any radiation of the pain, denies any nausea, vomiting, shortness of breath or diaphoresis. Patient has never had a heart attack in the past. TRAVEL OUTSIDE OF THE [place] IN LAST 30 DAYS: No - Related Data Allergies/Adverse Reactions: Sulfa (Sulfonamide Antibiotics) Allergy (Verified 09/28/19 15:31) Home Medications: Eliquis Past Medical History - General Information source: Patient - Social History Smoking Status: Never Smoker Chew tobacco use (# tins/day): No Frequency of alcohol use: None Drug Abuse: None Family History: Reviewed & Not Pertinent Patient has suicidal ideation: No Patient has homicidal ideation: No - Past Medical History Cardiac Medical History: Reports: Hx Coronary Artery Disease, Hx Hypertension - ON MEDS Denies: Hx Congestive Heart Failure, Hx Heart Attack Pulmonary Medical History: Denies: Hx Asthma, Hx Bronchitis, Hx COPD, Hx Pneumonia, Hx Tuberculosis Neurological Medical History: Denies: Hx Cerebrovascular Accident, Hx Seizures, Hx Parkinson's Disease Renal/ Medical History: Denies: Hx End Stage Renal Disease, Hx Kidney Stones, Hx Peritoneal Dialysis GI Medical History: Denies: Hx Cirrhosis, Hx Gastroesophageal Reflux Disease, Hx Hepatitis, Hx Hiatal Hernia, Hx Ulcer Musculoskeletal Medical History: 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, 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, Denies Hx Multiple Sclerosis Psychiatric Medical History: Denies: Hx Bipolar Disorder, Hx Depression, Hx Schizophrenia Infectious Medical History: Denies: Hx Hepatitis Past Surgical History: Reports: Hx Hysterectomy. Denies: Hx Mastectomy, Hx Open Heart Surgery, Hx Pacemaker - Immunizations Hx Diphtheria, Pertussis, Tetanus Vaccination: Yes Hx Pneumococcal Vaccination: 04/07/13 Review of Systems - Review of Systems Cardiovascular: Chest pain -: Yes All other systems reviewed and negative Physical Exam - Vital signs Vitals: Temp 98 F 09/28/19 15:13 - Notes Notes: PHYSICAL EXAMINATION: GENERAL: Well-appearing, well-nourished and in no acute distress. HEAD: Atraumatic, normocephalic. EYES: Pupils equal round and reactive to light, extraocular movements intact, conjunctiva are normal. ENT: Nares patent, oropharynx clear without exudates. Moist mucous membranes. NECK: Normal range of motion, supple without lymphadenopathy LUNGS: Breath sounds clear to auscultation bilaterally and equal. No wheezes rales or rhonchi. HEART: Regular rate and rhythm without murmurs ABDOMEN: Soft, nontender, nondistended abdomen. No guarding, no rebound. No masses appreciated. Female : deferred Musculoskeletal: Normal range of motion, no pitting or edema. No cyanosis. NEUROLOGICAL: Cranial nerves grossly intact. Normal speech, normal gait. Normal sensory, motor exams PSYCH: Normal mood, normal affect. SKIN: Warm, Dry, normal turgor, no rashes or lesions noted. Course - Re-evaluation Re-evalutation: Presentation of chest pain in an otherwise well appearing patient. Low clinical suspicion for ACS given clinical history, exam, EKG without ST elevations or depressions, and negative initial troponin. HEART score less than or equal to 3. PE also seems unlikely given clinical history, absence of tachycardia or dyspnea. Patient is PERC criteria negative. CXR without evidence of pneumothorax or pneumonia. No widened mediastinum. Aortic dissection also seems unlikely given history, symmetric pulses, CXR, and vitals. HEART Score: History 0 ECG 0 Age +2 Risk Factors +1 Troponin 0 Total: 3 Chest pain in a patient without evidence of cardiac or other serious etiology on workup today. I discussed with patient that, based on their age, risk factors and emergency department testing today, the likelihood that their symptoms are related to a heart attack is very low (estimated risk of heart attack or over the next 30 days of less than 1%). The patient demonstrates decision making capacity and has verbalized an understanding of these risks to me. Based on this, the patient has chosen to follow-up as an outpatient. Usual chest pain return precautions reviewed. The patient states understanding and agreement with this plan. - Vital Signs Vital signs: Temp Pulse Resp BP Pulse Ox 98.5 F 65 16 154/42 H 97 09/28/19 19:28 09/28/19 19:28 09/28/19 19:28 09/28/19 19:28 09/28/19 19:28 - Laboratory Result Diagrams: 09/28/19 15:10 09/28/19 15:10 Laboratory results interpreted by me: 09/28/19 09/28/19 15:00 15:10 Potassium 3.4 L Creatinine 0.50 L Glucose 111 H Urine Protein 100 H Urine Blood MODERATE H Leukocyte Esterase Rfl TRACE H - Diagnostic Test Radiology reviewed: Image reviewed, Reports reviewed - EKG Interpretation by Me EKG shows normal: Sinus rhythm Rate: Normal Rhythm: NSR Discharge - Discharge Clinical Impression: Chest pain Qualifiers: Chest pain type: unspecified Qualified Code(s): R07.9 - Chest pain, unspecified Condition: Stable Disposition: HOME, SELF-CARE Additional Instructions: You were seen today for chest pain. The exact cause of your pain is unclear. However, based on your cardiac enzyme testing, chest x-ray, and EKG it does not appear that it is from an immediately life-threatening cause at this time. Although your testing here is normal is critical that you follow-up with your primary care physician for continued evaluation of this chest pain and possible stress testing. I recommended you see your physician within the next 24-48 hours to be evaluated for consideration of a stress test. Please return to emergency department immediately if you have worsening of your chest pain, shortness of breath, vomiting, become unable to exert yourself due to pain or difficulty breathing, you pass out, or have any pain that radiates into your arms, jaw, or back. Please also return if you have any additional symptoms that are concerning to you. Referrals: ASHA MONTIEL MD [Primary Care Provider] - Follow up as needed
[2019-09-28 19:35] VITALS: BP 154/42
--- NOTE | 2019-09-28 23:52 | EKG REPORT ---
SEVERITY:- ABNORMAL ECG - SINUS RHYTHM LEFT VENTRICULAR HYPERTROPHY BORDERLINE INFERIOR Q WAVES : Confirmed by: Kylah Rush 28-Sep-2019 23:52:00
== END 2019-09-28 19:30 | disposition home or self-care (01) ==
LOC: ER 14:51
DX: R07.9 Chest pain, unspecified (principal); I25.10 Atherosclerotic heart disease of native coronary artery without angina pectoris; I10 Essential (primary) hypertension; Z79.01 Long term (current) use of anticoagulants; Z88.2 Allergy status to sulfonamides
CPT/HCPCS: 36415; 71045; 80053; 81001; 82550; 82553; 84484; 85025; 93005; 93010; 99285

== ENCOUNTER 2019-11-13 07:40 | Emergency (ER) | payer MEDICARE ==
[2019-11-13 08:21] LABS: APPEARANCE,URINE CLOUDY; BILIRUBIN,URINE NEGATIVE (NEGATIVE); COLOR,URINE YELLOW; GLUCOSE, URINE NEGATIVE (NEGATIVE); KETONES,URINE NEGATIVE (NEGATIVE); LEUKOCYTE ESTERASE,URINE SMALL (NEGATIVE); NITRITE,URINE NEGATIVE (NEGATIVE); PROTEIN,URINE 100 mg/dL (NEGATIVE); URINE SPECIFIC GRAVITY 1.016; UROBILINOGEN,URINE NEGATIVE mg/dL (<2.0)
[2019-11-13] MEDS ORDERED: NORMAL SALINE 1000 ML 1,000 ML IV ONE (08:32)
[2019-11-13] MEDS ORDERED: ONDANSETRON HCL INJ/PF 4 MG/2 ML SDV IV ONE (08:33)
[2019-11-13] MEDS ORDERED: MORPHINE SULFATE 10 MG/ML INJ IV ONE (08:35)
[2019-11-13 08:47] LABS: ABSOLUTE LYMPHOCYTES (AUTO) 0.9 10^3/uL (0.5-4.7); ABSOLUTE MONOCYTES (AUTO) 0.5 10^3/uL (0.1-1.4); ABSOLUTE NEUT (AUTO) 5.7 10^3/uL (1.7-8.2); BASOPHILS % (AUTO) 0.3 % (0-2); EOSINOPHILS % (AUTO) 0.5 % (0-6); HEMATOCRIT 40.8 % (36.0-47.0); HEMOGLOBIN 14.2 g/dL (12.0-15.5); LYMPHOCYTES % (AUTO) 12.8 % (13-45); MEAN CORPUSCULAR HEMOGLOBIN 30.4 pg (27.0-33.4); MEAN CORPUSCULAR HGB CONC 34.7 g/dL (32.0-36.0); MEAN CORPUSCULAR VOLUME 87 fl (80-97); MONOCYTES % (AUTO) 7.5 % (3-13); PLATELET COUNT 163 10^3/uL (150-450); RED BLOOD COUNT 4.67 10^6/uL (3.72-5.28); RED CELL DISTRIBUTION WIDTH 13.2 % (11.5-14.0); SEGMENTED NEUTROPHILS % (AUTO) 78.9 % (42-78); TOTAL CELLS COUNTED % (AUTO) 100 %; WHITE BLOOD COUNT 7.3 10^3/uL (4.0-10.5)
--- NOTE | 2019-11-13 08:55 | RADIOLOGY REPORT (SQ) ---
EXAM DESCRIPTION: CHEST SINGLE VIEW IMAGES COMPLETED DATE/TIME: 11/13/2019 8:44 am REASON FOR STUDY: afib/nausea/ abd left flank pain COMPARISON: AP view of the chest from 09/28/2019. EXAM PARAMETERS: NUMBER OF VIEWS: One view. TECHNIQUE: An AP view of the chest was obtained. RADIATION DOSE: NA LIMITATIONS: None. FINDINGS: LUNGS AND PLEURA: No consolidation, pleural effusion or pneumothorax. MEDIASTINUM AND HILAR STRUCTURES: No mediastinal or hilar contour abnormality. HEART AND VASCULAR STRUCTURES: The cardiac silhouette and pulmonary vasculature are within normal nunes its. BONES: No acute findings. HARDWARE: None in the chest. OTHER: No other finding. IMPRESSION: No acute cardiopulmonary process. TECHNICAL DOCUMENTATION: JOB ID: [id number] 2010 [employer]- All Rights Reserved Reading location - IP/workstation name: [email or web address]
[2019-11-13 08:58] LABS: ALBUMIN 4.7 g/dL (3.5-5.0); ALKALINE PHOSPHATASE 62 U/L (38-126); ANION GAP 7 (5-19); ASPARTATE AMINO TRANSFERASE 19 U/L (14-36); BILIRUBIN,TOTAL 0.7 mg/dL (0.2-1.3); BLOOD UREA NITROGEN 16 mg/dL (7-20); CALCIUM 9.6 mg/dL (8.4-10.2); CARBON DIOXIDE 27 mmol/L (22-30); CHLORIDE 106 mmol/L (98-107); GLUCOSE 129 mg/dL (75-110); POTASSIUM 3.4 mmol/L (3.6-5.0); TOTAL PROTEIN 7.4 g/dL (6.3-8.2)
[2019-11-13] MEDS ORDERED: LORAZEPAM INJ 2 MG/1 ML VIAL IV ONE (10:19)
--- NOTE | 2019-11-13 11:31 | RADIOLOGY REPORT (SQ) ---
EXAM DESCRIPTION: CT ABD/PELVIS WITH IV ORAL IMAGES COMPLETED DATE/TIME: 11/13/2019 11:14 am REASON FOR STUDY: left flank pain/recurrent UTI/ micoscopic hematuri COMPARISON: CT of the abdomen pelvis without contrast from 06/29/2019. TECHNIQUE: CT scan of the abdomen and pelvis performed using helical scanning technique with dynamic intravenous contrast injection. No oral contrast. Images reviewed with lung, soft tissue, and bone windows. Reconstructed coronal and sagittal MPR images reviewed. Delayed images for evaluation of the urinary system also acquired. All images stored on PACS. All CT scanners at this facility use dose modulation, iterative reconstruction, and/or weight based d osing when appropriate to reduce radiation dose to as low as reasonably achievable (ALARA). [facility]: Dose Right [facility]: CareDose [facility]: Dose Right [facility]: Teradose 4D [facility]: [employer] CONTRAST TYPE AND DOSE: 86 mL Omnipaque 350- low osmolar. RENAL FUNCTION: Creatinine 0.51 milligrams/deciliter. RADIATION DOSE: CT Rad equipment meets quality standard of care and radiation dose reduction techniq ues were employed. CTDIvol: NaN mGy. DLP: 0 mGy-cm. LIMITATIONS: None. FINDINGS: LOWER CHEST: No acute findings. LIVER: The relative hypoattenuation of the hepatic parenchyma compared to the splenic parenchyma on t he portal venous phase is suggestive of underlying hepatic steatosis. The portal veins are patent. There is no hepatic mass. SPLEEN: Hypervascular splenic lesion that measures 14 mm in short axis diameter. There is no splenom egaly. PANCREAS: No acute abnormality of the pancreas. GALLBLADDER: No abnormality that is apparent on CT. ADRENAL GLANDS: Stable 9 mm right adrenal nodule. RIGHT KIDNEY AND URETER: No solid masses. No calcifications. No hydronephrosis or hydroureter. LEFT KIDNEY AND URETER: No solid masses. No calcifications. No hydronephrosis or hydroureter. AORTA AND VESSELS: No aneurysm or dissection of the abdominal aorta. The abdominopelvic vasculature is patent. RETROPERITONEUM: No retroperitoneal adenopathy, hemorrhage or mass. BOWEL AND PERITONEAL CAVITY: Colonic diverticulosis without diverticulitis. There is no bowel obstru ction, bowel wall thickening or pericolonic/ perienteric inflammation. There is no free intraperiton eal fluid, mesenteric adenopathy or mesenteric/ omental inflammation. APPENDIX: Unable to identify the appendix. There is no pericecal inflammation. PELVIS: The urinary bladder is partially distended. There is no pelvic mass. ABDOMINAL WALL: Fat containing umbilical hernia. BONES: No fracture or osseous lesion. OTHER: No other finding. IMPRESSION: 1. No acute intra-abdominal abnormality. 2. 14 mm hypervascular splenic lesion that could represent a hemangioma. 3. Stable 9 mm right adrenal nodule. 4. Colonic diverticulosis without diverticulitis. TECHNICAL DOCUMENTATION: JOB ID: [id number] Quality ID # [id number]: Final reports with documentation of one or more dose reduction techniques (e.g., Au tomated exposure control, adjustment of the mA and/or kV according to patient size, use of iterative reconstruction technique) 2010 [employer]- All Rights Reserved Reading location - IP/workstation name: [email or web address]
[2019-11-13] MEDS ORDERED: METOPROLOL TARTRATE 50 MG TABLET PO ONE (11:57)
[2019-11-13] MEDS ORDERED: LISINOPRIL 10 MG TABLET PO ONE (11:58)
[2019-11-13] MEDS ORDERED: CIPROFLOXACIN 400 MG/D5W RTU 400 MG/200 ML RTUPB IV ONE (11:58)
[2019-11-13] MEDS ORDERED: METOPROLOL TARTRATE PF/INJ 5 MG/5 ML SDV IV ONE (12:33)
[2019-11-13] MEDS ORDERED: HYDRALAZINE HCL INJ/PF 20 MG/1 ML SDV IV ONE (12:33)
[2019-11-13] MEDS ORDERED: METOCLOPRAMIDE HCL INJ/PF 10 MG/2 ML SDV IV ONE (12:39)
--- NOTE | 2019-11-13 14:58 | EKG REPORT ---
SEVERITY:- ABNORMAL ECG - SINUS RHYTHM LEFT VENTRICULAR HYPERTROPHY INFERIOR INFARCT, AGE INDETERMINATE : Confirmed by: Ashanti Zambrano MD 13-Nov-2019 14:57:34
--- NOTE | 2019-11-13 15:24 | ER Document Report ---
Entered by ELKE CARDOZO SCRIBE 11/13/19 0827 Acting as scribe for:EMMANUEL WELCH MD ED General - General Chief Complaint: Flank Pain Stated Complaint: RIGHT FLANK PAIN Time Seen by Provider: 11/13/19 08:12 Primary Care Provider: ASHA MONTIEL MD [Primary Care Provider] - Follow up as needed Information source: Patient Notes: This 79 year old female patient presents to the emergency department today with complaints of a "dull, aching" pain in her left flank for the past x3 days. Patient states she has a history of UTIs and have had x3 the past x2 months. Pat ient states she is still taking her x2 prescribed medications from the last UTI but her symptoms of flank pain and "stinging" when urinating are not relieved. Patient reports nausea and constipation, but denies chills or a fever. TRAVEL OUTSIDE OF THE [place] IN LAST 30 DAYS: No - Related Data Allergies/Adverse Reactions: Sulfa (Sulfonamide Antibiotics) Allergy (Verified 11/13/19 07:54) Past Medical History - General Information source: Patient - Social History Smoking Status: Never Smoker Cigarette use (# per day): No Chew tobacco use (# tins/day): No Frequency of alcohol use: None Drug Abuse: None Family History: Reviewed & Not Pertinent Patient has homicidal ideation: No - Past Medical History Cardiac Medical History: Reports: Hx Atrial Fibrillation, Hx Coronary Artery Disease, Hx Hypercholesterolemia, Hx Hypertension - ON MEDS Musculoskeletal Medical History: 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, 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 Past Surgical History: Reports: Hx Hysterectomy - Immunizations Hx Diphtheria, Pertussis, Tetanus Vaccination: Yes Hx Pneumococcal Vaccination: 04/07/13 Review of Systems - Review of Systems Constitutional: See HPI. denies: Chills, Fever EENT: No symptoms reported Cardiovascular: No symptoms reported Respiratory: No symptoms reported Gastrointestinal: See HPI, Nausea, Constipation Genitourinary: See HPI, Burning, Flank pain Female Genitourinary: No symptoms reported Musculoskeletal: No symptoms reported Skin: No symptoms reported Hematologic/Lymphatic: No symptoms reported Neurological/Psychological: No symptoms reported -: Yes All other systems reviewed and negative Physical Exam - Vital signs Vitals: Temp 97.5 F 11/13/19 07:46 - General General appearance: Appears well, Alert - HEENT Head: Normocephalic, Atraumatic Eyes: Normal Pupils: PERRL - Respiratory Respiratory status: No respiratory distress Chest status: Nontender Breath sounds: Normal Chest palpation: Normal - Cardiovascular Rhythm: Regular Heart sounds: Normal auscultation, S1 appreciated, S2 appreciated Murmur: No - Abdominal Inspection: Normal Distension: No distension Bowel sounds: Normal Tenderness: Nontender. No: Guarding, Rebound - Back Back: Tender - Lower back: R>L - Extremities General upper extremity: Normal inspection. No: Edema General lower extremity: Normal inspection. No: Edema - Neurological Neuro grossly intact: Yes Cognition: Normal Orientation: AAOx4 Speech: Normal - Psychological Associated symptoms: Normal affect, Normal mood - Skin Skin Temperature: Warm Skin Moisture: Dry Skin Color: Normal Course - Re-evaluation Re-evalutation: 11/13/19 15:17 Patient states her nausea has improved abdominal abdominal pain has improved and she is feeling better. Patient has eaten some crackers without any vomiting. Patient reports she has ciprofloxacin prescription already on file for refill and which is the medication that I plan to place her on for her diverticular colitis left flank pain. - Vital Signs Vital signs: Temp Pulse Resp BP Pulse Ox 97.5 F 73 21 H 166/62 H 100 11/13/19 07:57 11/13/19 07:57 11/13/19 13:31 11/13/19 13:31 11/13/19 13:31 11/13/19 15:17 Blood pressure has improved at this time. See vital sign data. - Laboratory Result Diagrams: 11/13/19 08:27 11/13/19 08:27 Laboratory results interpreted by me: 11/13/19 11/13/19 11/13/19 08:03 08:27 08:27 Lymph % (Auto) 12.8 L Seg Neutrophils % 78.9 H Potassium 3.4 L Creatinine 0.51 L Glucose 129 H Urine Protein 100 H Urine Blood SMALL H Ur Leukocyte Esterase SMALL H 11/13/19 15:18 Laboratories showed small leukocyte esterase positive small urine blood present. - Diagnostic Test Radiology reviewed: Image reviewed, Reports reviewed Radiology results interpreted by me: 11/13/19 15:18 CT scan of abdomen and pelvis with oral and IV contrast shows diverticulosis without diverticulitis 14 mm splenic lesion present suggesting a hemangioma and a 9 mm right adrenal nodule which is stable. No other acute process noted. 11/13/19 15:20 Chest x-ray no acute process. - EKG Interpretation by Me Additional EKG results interpreted by me: 11/13/19 15:19 12-lead EKG shows normal sinus rhythm rate of 80 left ventricular hypertrophy borderline inferior Q waves otherwise no acute process. Discharge - Discharge Clinical Impression: Acute right flank pain, Urinary tract infection, Diverticulosis, Hypertension, Nausea Condition: Stable Disposition: HOME, SELF-CARE Instructions: Antinausea Medication ([facility]), Urinary Tract Infection ([facility]) Additional Instructions: Diverticulitis You were found today to have diverticulosis without diverticulitis. This was documented on the CT scan of the abdomen nonetheless I am sending you home with information regarding diverticulitis in case your condition worsen.Urinary Tract Infection Your evaluation indicates that you have a urinary tract infection. This is due to germs growing in the bladder. This is a common problem. This infection usually responds quickly to antibiotics. Your antibiotic should be taken exactly as prescribed. Drink plenty of fluids -- three to four quarts a day. Occasionally, a bladder anesthetic will be prescribed to help stop the feeling of urgency until the antibiotic has a chance to clear the infection. This may cause your urine to be dark orange. Certain urine infections require a culture. If the doctor obtained a culture, the results will be back in two days. You should call to see if a change in treatment is needed. A repeat urinalysis after you finish treatment is often recommended. The physician will let you know if further testing is required. Call the doctor if you develop fever, chills, flank pain, inability to urinate, or blood in the urine. You have been diagnosed as having diverticulitis. This is an inflammation of a small pouch attached to the colon, called a diverticulum. Many of these small pouches can form on the colon as you get older. They are often caused by constipation. When inflamed or infected, symptoms arise -- usually abdominal pain, constipation or diarrhea, fever, and blood in the stool. Severe diverticulitis may require hospitalization. More mild cases are usually treated with antibiotics and clear liquid diet. As you improve, a diet low in residue (one which forms little stool) is prescribed. When you are better, you should eat a high-fiber diet. Stool softeners (like Metamucil) are usually recommended. Call the doctor or go to the hospital if there is increasing pain, vomiting, high fever, large amounts of blood passed, or if bowel movements cease. Inasmuch as you already have a prescription for a 10-day course of ciprofloxacin no need for further prescription to take for your urinary tract infection and consider continue to follow-up with your urine urologist as you have already planned to do so. Prescriptions: Ondansetron [Zofran Odt 4 mg Tablet] 1 - 2 tab PO Q4H PRN #15 tab.rapdis PRN Reason: For Nausea/Vomiting Referrals: ASHA MONTIEL MD [Primary Care Provider] - Follow up as needed I personally performed the services described in the documentation, reviewed and edited the documentation which was dictated to the scribe in my presence, and it accurately records my words and actions.
[2019-11-13 15:36] VITALS: BP 164/59
== END 2019-11-13 15:53 | disposition home or self-care (01) ==
LOC: ER 07:40
DX: N39.0 Urinary tract infection, site not specified (principal); R31.9 Hematuria, unspecified; K52.9 Noninfective gastroenteritis and colitis, unspecified; K57.30 Diverticulosis of large intestine without perforation or abscess without bleeding; D73.89 Other diseases of spleen; K59.00 Constipation, unspecified; I25.10 Atherosclerotic heart disease of native coronary artery without angina pectoris; E27.8 Other specified disorders of adrenal gland; I10 Essential (primary) hypertension; R11.0 Nausea; R10.9 Unspecified abdominal pain; Z88.2 Allergy status to sulfonamides
CPT/HCPCS: 93005; 99285; 96361; 96375; 96365; 36415; 87086; 83605; 83690; 85025; 87088; 80053; 81001; 84484; 71045; 74177; 93010; J0360; J2765; J3490; J2270; J2060; J2405; J7030; J0744; 87186

== ENCOUNTER 2020-05-09 09:50 | Emergency (ER) | payer MEDICARE ==
[2020-05-09 10:44] LABS: ABSOLUTE EOSINOPHILS # (AUTO) 0.1 10^3/uL (0.0-0.6); ABSOLUTE MONOCYTES (AUTO) 0.7 10^3/uL (0.1-1.4); ABSOLUTE NEUT (AUTO) 6.5 10^3/uL (1.7-8.2); BASOPHILS % (AUTO) 0.2 % (0-2); EOSINOPHILS % (AUTO) 0.6 % (0-6); HEMATOCRIT 41.4 % (36.0-47.0); LYMPHOCYTES % (AUTO) 12.1 % (13-45); MEAN CORPUSCULAR HEMOGLOBIN 30.2 pg (27.0-33.4); MEAN CORPUSCULAR HGB CONC 33.9 g/dL (32.0-36.0); MEAN CORPUSCULAR VOLUME 89 fl (80-97); MONOCYTES % (AUTO) 8.7 % (3-13); PLATELET COUNT 179 10^3/uL (150-450); RED BLOOD COUNT 4.63 10^6/uL (3.72-5.28); RED CELL DISTRIBUTION WIDTH 13.8 % (11.5-14.0); SEGMENTED NEUTROPHILS % (AUTO) 78.4 % (42-78); TOTAL CELLS COUNTED % (AUTO) 100 %; WHITE BLOOD COUNT 8.3 10^3/uL (4.0-10.5)
[2020-05-09 10:46] LABS: APPEARANCE,URINE CLOUDY; BILIRUBIN,URINE NEGATIVE (NEGATIVE); COLOR,URINE AMBER; GLUCOSE, URINE NEGATIVE (NEGATIVE); KETONES,URINE NEGATIVE (NEGATIVE); PROTEIN,URINE 100 mg/dL (NEGATIVE); URINE SPECIFIC GRAVITY 1.028; UROBILINOGEN,URINE NEGATIVE mg/dL (<2.0)
[2020-05-09 10:50] LABS: ALKALINE PHOSPHATASE 49 U/L (38-126); ANION GAP 10 (5-19); ASPARTATE AMINO TRANSFERASE 24 U/L (14-36); BILIRUBIN,DIRECT 0.1 mg/dL (0.0-0.4); BILIRUBIN,TOTAL 0.5 mg/dL (0.2-1.3); BLOOD UREA NITROGEN 21 mg/dL (7-20); CALCIUM 10.2 mg/dL (8.4-10.2); CARBON DIOXIDE 25 mmol/L (22-30); CHLORIDE 105 mmol/L (98-107); GLUCOSE 125 mg/dL (75-110); TOTAL PROTEIN 7.8 g/dL (6.3-8.2)
--- NOTE | 2020-05-09 12:14 | RADIOLOGY REPORT (SQ) ---
EXAM DESCRIPTION: CT ABD/PELVIS NO ORAL OR IV IMAGES COMPLETED DATE/TIME: 05/09/2020 11:17 am REASON FOR STUDY: left flank pain COMPARISON: 11/13/2019 TECHNIQUE: CT scan of the abdomen and pelvis performed without intravenous or oral contrast. Images reviewed with lung, soft tissue, and bone windows. Reconstructed coronal and sagittal MPR images revi ewed. All images stored on PACS. All CT scanners at this facility use dose modulation, iterative reconstruction, and/or weight based d osing when appropriate to reduce radiation dose to as low as reasonably achievable (ALARA). [facility]: Dose Right [facility]: CareDose [facility]: Dose Right [facility]: Teradose 4D [facility]: [employer] RADIATION DOSE: CT Rad equipment meets quality standard of care and radiation dose reduction techniq ues were employed. CTDIvol: 8.2 mGy. DLP: 447 mGy-cm.mGy. LIMITATIONS: None. FINDINGS: LOWER CHEST: No significant findings. No nodules or infiltrates. NON-CONTRASTED LIVER, SPLEEN, ADRENALS: Evaluation limited by lack of IV contrast. No identified sign ificant masses. PANCREAS: No masses. No peripancreatic inflammatory changes. GALLBLADDER: No identified stones by CT criteria. No inflammatory changes to suggest cholecystitis. RIGHT KIDNEY AND URETER: No suspicious masses. Assessment limited by lack of IV contrast. No signif icant calcifications. No hydronephrosis or hydroureter. LEFT KIDNEY AND URETER: No suspicious masses. Assessment limited by lack of IV contrast. No signifi cant calcifications. No hydronephrosis or hydroureter. AORTA AND RETROPERITONEUM: No aortic aneurysm. Ectatic appearing proximal iliac arteries. Atheroscl erotic vascular calcifications are seen throughout. BOWEL AND PERITONEAL CAVITY: No obvious masses or inflammatory changes. No free fluid. Desiccated st ool seen within the rectal vault. APPENDIX: Not visualized. PELVIS, BLADDER, AND ABDOMINAL WALL:No abnormal masses. No free fluid. Bladder normal. BONES: No significant findings. OTHER: No other significant finding. IMPRESSION: No evidence of urolithiasis or obstructive uropathy. No acute intra-abdominal infectiou s/inflammatory process. COMMENT: Quality ID # [id number]: Final reports with documentation of one or more dose reduction techniques (e.g., Automated exposure control, adjustment of the mA and/or kV according to patient size, use of iterative reconstruction technique) TECHNICAL DOCUMENTATION: JOB ID: [id number] 2010 [employer]- All Rights Reserved Reading location - IP/workstation name: [email or web address]
--- NOTE | 2020-05-09 12:58 | ER Document Report ---
ED General - General Chief Complaint: Flank Pain Stated Complaint: LEFT FLANK PAIN Time Seen by Provider: 05/09/20 10:15 Primary Care Provider: ASHA MONTIEL MD [Primary Care Provider] - Follow up as needed Mode of Arrival: Ambulatory Information source: Patient TRAVEL OUTSIDE OF THE [place] IN LAST 30 DAYS: No - HPI Notes: Patient presents with severe left flank pain. States it started last night. She states that she has had this before and has been secondary to some urinary tract and kidney infections. She states she is never had a kidney stone before. She has seen some blood in her urine. Some nausea but no vomiting. No problems with stools. The pain has been relatively constant but is gradually getting better. Nothing is made it better or worse. It radiates into the left lower quadrant and is sharp. - Related Data Allergies/Adverse Reactions: morphine Allergy (Verified 05/09/20 10:01) Sulfa (Sulfonamide Antibiotics) Allergy (Verified 05/09/20 10:01) Past Medical History - General Information source: Patient - Social History Smoking Status: Never Smoker Chew tobacco use (# tins/day): No Frequency of alcohol use: None Drug Abuse: None Family History: Reviewed & Not Pertinent Patient has homicidal ideation: No - Past Medical History Cardiac Medical History: Reports: Hx Atrial Fibrillation, Hx Coronary Artery Disease, Hx Hypercholesterolemia, Hx Hypertension - ON MEDS Denies: Hx Congestive Heart Failure, Hx Heart Attack Pulmonary Medical History: Denies: Hx Asthma, Hx Bronchitis, Hx COPD, Hx Pneumonia, Hx Tuberculosis Neurological Medical History: Denies: Hx Cerebrovascular Accident, Hx Seizures, Hx Parkinson's Disease Renal/ Medical History: Denies: Hx End Stage Renal Disease, Hx Kidney Stones, Hx Peritoneal Dialysis GI Medical History: Denies: Hx Cirrhosis, Hx Gastroesophageal Reflux Disease, Hx Hepatitis, Hx Hiatal Hernia, Hx Ulcer Musculoskeletal Medical History: 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 Denies: Hx Mastectomy, Hx Open Heart Surgery, Hx Pacemaker - Immunizations Hx Diphtheria, Pertussis, Tetanus Vaccination: Yes Hx Pneumococcal Vaccination: 04/07/13 Review of Systems - Review of Systems Constitutional: denies: Chills, Fever Cardiovascular: denies: Chest pain, Palpitations Respiratory: denies: Cough, Short of breath -: Yes All other systems reviewed and negative Physical Exam - Vital signs Vitals: Temp Pulse Resp BP Pulse Ox 98.0 F 88 16 137/55 H 98 05/09/20 09:54 05/09/20 09:54 05/09/20 09:54 05/09/20 09:54 05/09/20 09:54 Interpretation: Normal - General General appearance: Appears well, Alert - HEENT Head: Normocephalic, Atraumatic Eyes: Normal Pupils: PERRL - Respiratory Respiratory status: No respiratory distress Chest status: Nontender Breath sounds: Normal Chest palpation: Normal - Cardiovascular Rhythm: Regular Heart sounds: Normal auscultation Murmur: No - Abdominal Inspection: Normal Distension: No distension Bowel sounds: Normal Tenderness: Tender - mild llq Organomegaly: No organomegaly - Back Back: Normal, Nontender - Extremities General upper extremity: Normal inspection, Nontender, Normal color, Normal ROM, Normal temperature General lower extremity: Normal inspection, Nontender, Normal color, Normal ROM, Normal temperature, Normal weight bearing. No: Barbara's sign - Neurological Neuro grossly intact: Yes Cognition: Normal Orientation: AAOx4 [place] Coma Scale Eye Opening: Spontaneous [place] Coma Scale Verbal: Oriented [place] Coma Scale Motor: Obeys Commands [place] Coma Scale Total: 15 Speech: Normal Motor strength normal: LUE, RUE, LLE, RLE Sensory: Normal - Psychological Associated symptoms: Normal affect, Normal mood - Skin Skin Temperature: Warm Skin Moisture: Dry Skin Color: Normal Course - Re-evaluation Re-evalutation: 05/09/20 12:53 Patient presents left lower quadrant abdominal pain. She has an equivocal urine with a few red cells and a few white cells. No obvious infectious process at this time. There is no stone. I did call and reviewed the CT scan with the radiologist and there is no evidence of any stone within the ureter. It is possible patient may have recently passed a stone. Given patient's age, pain and equivocal nature of the urine I am going to put on a short course of antibiotics and refer her to her primary care physician. - Vital Signs Vital signs: Temp Pulse Resp BP Pulse Ox 98.0 F 88 16 137/55 H 98 05/09/20 09:54 05/09/20 09:54 05/09/20 09:54 05/09/20 09:54 05/09/20 09:54 - Laboratory Result Diagrams: 05/09/20 10:14 05/09/20 10:14 Laboratory results interpreted by me: 05/09/20 05/09/20 05/09/20 10:14 10:14 10:14 Lymph % (Auto) 12.1 L Seg Neutrophils % 78.4 H BUN 21 H Glucose 125 H Urine Protein 100 H Urine Blood SMALL H Leukocyte Esterase Rfl SMALL H - Diagnostic Test Radiology reviewed: Image reviewed, Reports reviewed Discharge - Discharge Clinical Impression: Left flank pain UTI (urinary tract infection) Qualifiers: Urinary tract infection type: acute cystitis Hematuria presence: without hematuria Qualified Code(s): N30.00 - Acute cystitis without hematuria Condition: Stable Disposition: HOME, SELF-CARE Instructions: Urinary Tract Infection ([facility]), Nitrofurantoin ([facility]), Abdominal Pain ([facility]) Prescriptions: Nitrofurantoin Monohyd/M-Cryst [Macrobid 100 mg Capsule] 100 mg PO BID 5 Days #10 cap Referrals: ASHA MONTIEL MD [Primary Care Provider] - Follow up in 3-5 days
[2020-05-09 13:30] VITALS: BP 134/56
== END 2020-05-09 13:31 | disposition home or self-care (01) ==
LOC: ER 09:50
DX: N30.00 Acute cystitis without hematuria (principal); R10.9 Unspecified abdominal pain; R10.32 Left lower quadrant pain; R10.814 Left lower quadrant abdominal tenderness; R11.0 Nausea; I25.10 Atherosclerotic heart disease of native coronary artery without angina pectoris; I10 Essential (primary) hypertension; Z87.440 Personal history of urinary (tract) infections; Z88.6 Allergy status to analgesic agent; Z88.5 Allergy status to narcotic agent; Z88.2 Allergy status to sulfonamides
CPT/HCPCS: 36415; 74176; 80053; 81001; 85025; 87086; 99284